=== PATIENT | female | born 1965 | race African-American/Black ===

== ENCOUNTER 2018-01-04 15:05 | Observation (INO) ==
[2018-01-04] MEDS ORDERED: SODIUM CHLORIDE 0.9% 1,000 ML IV STA (15:29)
[2018-01-04 16:11] LABS: Eosinophils % 0.4 % (0.00-10.9); Immature Granulocytes % 0.4 %; Immature Granulocytes Absolute 0.01 #; Lymphocytes # 1.2 10*3/uL (1.4-4.0); Lymphocytes % 43.1 % (21.3-54.2); Mean Corpuscular HGB Conc 30.3 GM/DL (32-36); Mean Corpuscular Hemoglobin 22 PG (27-34); Mean Corpuscular Volume 72.4 FL (87-102); Monocytes # 0.5 10*3/uL (0.11-0.8); Monocytes % 18.2 % (1.7-12.7); Neutrophils % 37.9 % (38.7-73.9); Platelet Count 207 T/CUMM (130-400); Red Blood Count 3.15 MC/CUMM (3.8-5.5); Red Cell Distribution Width 21.7 % (9.3-17.3); White Blood Count 2.7 T/CUMM (4-12)
[2018-01-04 16:15] LABS: Apearance,Urine CLEAR (Clear); Bacteria,Urine Occasional /HPF (Few); Bilirubin,Urine Negative (Negative); Blood, Urine Negative (Negative); Glucose,Urine (UA) Negative (Negative); Ketones,Urine Negative (Negative); Mucus,Urine Few /LPF (Occasional); Nitrite,Urine Negative (Negative); Protein,Urine Negative; RBC,Urine 1 /HPF (0-4); Squamous Epithelial Cell,Urine Occasional /HPF (0-10); Urine Color Yellow (Yellow); Urine Specific Gravity 1.014 (1.001-1.035); WBC,Urine 3 /HPF (0-6)
[2018-01-04 16:21] LABS: Hematocrit 22.8 VOL% (35.7-47.0); Hemoglobin 6.9 GM/DL (12.0-16.0)
[2018-01-04] MEDS ORDERED: SODIUM CHLORIDE 0.9% 1,000 ML IV PRN (16:30)
[2018-01-04 16:31] LABS: Albumin 2.5 G/DL (3.4-5.0); Bilirubin,Total 0.4 MG/DL (0.2-1.0); Calcium 8.8 MG/DL (8.5-10.1); Osmolality,Calculated 274.7 MOS/KG (273-304); Potassium 2.9 MMOL/L (3.5-5.1); T4 (Thyroxine) 9.8 UG/DL (4.7-13.3); Thyroid Stimulating Hormone 1.15 uIU/ml (0.358-3.74); Total Protein 8.2 G/DL (6.4-8.3)
[2018-01-04] MEDS ORDERED: MYLANTA/LIDO VISC 2:1 300 ML BOTTLE SWISH/SWAL PRN (18:36)
[2018-01-04] MEDS ORDERED: PROMETHAZINE INJ 25 MG in SODIUM CHLORIDE 0.9% 50 ML IV PRN (18:36)
[2018-01-04] MEDS ORDERED: diphenhydrAMINE CAP 25 MG CAPSULE PO PRN (18:36)
[2018-01-04] MEDS ORDERED: chlorproMAZINE 25 MG TABLET PO PRN (18:36)
[2018-01-04] MEDS ORDERED: ALPRAZolam 0.25 MG TABLET PO PRN (18:36)
[2018-01-04] MEDS ORDERED: MYLANTA/LIDO VISC 2:1 300 ML BOTTLE SWISH/SPIT PRN (18:36)
[2018-01-04] MEDS ORDERED: ACETAMINOPHEN 325 MG TABLET PO PRN (18:36)
[2018-01-04] MEDS ORDERED: TEMAZEPAM 7.5 MG CAPSULE PO PRN (18:36)
[2018-01-04] MEDS ORDERED: MAGNESIUM HYDROXIDE SUSP 30 ML UDCUP PO PRN (18:36)
[2018-01-04] MEDS ORDERED: LACTULOSE 20 GM/30 ML UDCUP PO PRN (18:36)
[2018-01-04] MEDS ORDERED: guaiFENesin 200 MG/10 ML UDCUP PO PRN (18:36)
[2018-01-04] MEDS ORDERED: traMADol 50 MG TABLET PO PRN (18:36)
[2018-01-04] MEDS ORDERED: BENZTROPINE 2 MG/2 ML AMP IV PRN (18:36)
[2018-01-04] MEDS ORDERED: ONDANSETRON 4 MG/2 ML VIAL IV PRN (18:36)
[2018-01-04] MEDS ORDERED: ALUMINUM/MAGNES/SIMETH MAX STR 30 ML UDCUP PO PRN (18:36)
[2018-01-04] MEDS ORDERED: LOPERAMIDE 2 MG CAPSULE PO PRN ×2 (18:36)
[2018-01-04 19:07] LABS: Anisocytosis 2+; Band Neutrophils 4 % (0-10); Hypochromasia 2+; Lymphocytes 44 % (20-55); Macrocytosis 2+; Metamyelocytes 1 %; Ovalocytes 1+; Platelet Estimate Normal; Segmented Neutrophils 33 % (50-85); Total Cells Counted 100
[2018-01-04] MEDS: SODIUM CHLORIDE 0.9% 1,000 ML IV SCH (20:57)
[2018-01-05] MEDS ORDERED: ALPRAZolam 0.25 MG TABLET PO PRN (08:40)
[2018-01-05] MEDS ORDERED: ONDANSETRON 4 MG TABLET PO PRN (08:40)
[2018-01-05] MEDS ORDERED: PROCHLORPERAZINE 10 MG TABLET PO PRN (08:40)
[2018-01-05] MEDS ORDERED: traMADol 50 MG TABLET PO PRN (08:40)
[2018-01-05] MEDS ORDERED: POTASSIUM CHLORIDE IV ONE (09:00)
[2018-01-05] MEDS ORDERED: POTASSIUM CHLORIDE RIDER IV SCH (09:00)
[2018-01-05] MEDS ORDERED: MAGNESIUM SULF IV SCH (09:00)
[2018-01-05] MEDS ORDERED: SODIUM CHLORIDE 0.9% IV ONE (09:00)
[2018-01-05] MEDS ORDERED: MAGNESIUM SULF IV ONE (09:00)
[2018-01-05] MEDS ORDERED: HEPARIN LOCK FLUSH 500 UNIT/5 ML SYRINGE IV ONE ×2 (09:03→18:09)
[2018-01-05] MEDS: SODIUM CHLORIDE 0.9% 1,000 ML IV SCH (09:32)
[2018-01-05 09:54] LABS: Basophils % 0.3 % (0.0-0.8); Hematocrit 27.3 VOL% (35.7-47.0); Immature Granulocytes % 0.3 %; Immature Granulocytes Absolute 0.01 #; Lymphocytes # 1.7 10*3/uL (1.4-4.0); Mean Corpuscular HGB Conc 31.5 GM/DL (32-36); Mean Corpuscular Hemoglobin 23 PG (27-34); Mean Corpuscular Volume 73.8 FL (87-102); Monocytes # 0.6 10*3/uL (0.11-0.8); Monocytes % 14.8 % (1.7-12.7); Neutrophils # 1.7 10*3/uL (1.4-7.4); Neutrophils % 41.6 % (38.7-73.9); Platelet Count 192 T/CUMM (130-400); Red Cell Distribution Width 20.4 % (9.3-17.3)
[2018-01-05 09:56] LABS: Hemoglobin 8.6 GM/DL (12.0-16.0)
[2018-01-05 10:20] LABS: Calcium 8.1 MG/DL (8.5-10.1); Osmolality,Calculated 269.8 MOS/KG (273-304); Potassium 3.3 MMOL/L (3.5-5.1)
[2018-01-05 16:26] VITALS: BP 126/95
== END 2018-01-05 18:41 | disposition home or self-care (01) ==
LOC: N.EDINP 15:05 → N.ED 15:05 → N.EDINP 18:35 → N.4E 19:07
PROVIDERS: ADMIT Specialist; ATTEND Specialist

== ENCOUNTER 2018-03-30 21:52 | Observation (INO) ==
[2018-03-30] MEDS ORDERED: ACETAMINOPHEN 500 MG TABLET PO STA (23:01)
[2018-03-30] MEDS ORDERED: SODIUM CHLORIDE 0.9% 1,000 ML IV STA (23:01)
[2018-03-30 23:33] LABS: Basophils % 0.3 % (0.0-0.8); Hematocrit 30.6 VOL% (35.7-47.0); Hemoglobin 9.8 GM/DL (12.0-16.0); Immature Granulocytes % 0.3 %; Immature Granulocytes Absolute 0.01 #; Lymphocytes # 1.1 10*3/uL (1.4-4.0); Lymphocytes % 29.7 % (21.3-54.2); Mean Corpuscular Hemoglobin 25 PG (27-34); Mean Corpuscular Volume 78.5 FL (87-102); Monocytes # 0.3 10*3/uL (0.11-0.8); Monocytes % 6.8 % (1.7-12.7); NRBC # 0.02 10*3/uL; Neutrophils # 2.4 10*3/uL (1.4-7.4); Neutrophils % 62.9 % (38.7-73.9); Platelet Count 266 T/CUMM (130-400); Red Cell Distribution Width 22.7 % (9.3-17.3); White Blood Count 3.8 T/CUMM (4-12)
[2018-03-30 23:50] LABS: Apearance,Urine CLEAR (Clear); Bacteria,Urine Occasional /HPF (Few); Bilirubin,Urine Negative (Negative); Blood, Urine Negative (Negative); Glucose,Urine (UA) Negative (Negative); Ketones,Urine Negative (Negative); Mucus,Urine Occasional /LPF (Occasional); Nitrite,Urine Negative (Negative); Protein,Urine Negative; RBC,Urine 2 /HPF (0-4); Squamous Epithelial Cell,Urine Occasional /HPF (0-10); Urine Color Yellow (Yellow); Urine Specific Gravity 1.013 (1.001-1.035); Urine Urobilinogen < 2.0 EU/DL (0.2-1.0); WBC,Urine 3 /HPF (0-6)
[2018-03-30 23:54] LABS: Lactic Acid 0.7 MMOL/L (0.4-2.0)
[2018-03-30 23:55] LABS: Albumin 2.7 G/DL (3.4-5.0); Bilirubin,Total 1.1 MG/DL (0.2-1.0); Calcium 8.7 MG/DL (8.5-10.1); Osmolality,Calculated 261.7 MOS/KG (273-304); Total Protein 8.3 G/DL (6.4-8.3)
[2018-03-31] MEDS ORDERED: CEFEPIME 1,000 MG in SODIUM CHLORIDE 0.9% 100 ML IV STA (00:05)
[2018-03-31 01:26] LABS: Anisocytosis 2+; Hypochromasia 1+; Poikilocytosis 2+
[2018-03-31 01:27] LABS: Polychromasia Slight
[2018-03-31] MEDS ORDERED: PROCHLORPERAZINE 10 MG TABLET PO PRN (01:32)
[2018-03-31] MEDS ORDERED: ALPRAZolam 0.25 MG TABLET PO PRN (01:32)
[2018-03-31] MEDS: SODIUM CHLORIDE 0.9% 1,000 ML IV SCH ×2 (04:43→08:52)
[2018-03-31 05:25] LABS: Basophils % 0.3 % (0.0-0.8); Hematocrit 29.2 VOL% (35.7-47.0); Hemoglobin 9.6 GM/DL (12.0-16.0); Immature Granulocytes % 0.3 %; Immature Granulocytes Absolute 0.01 #; Lymphocytes # 1.3 10*3/uL (1.4-4.0); Lymphocytes % 40.1 % (21.3-54.2); Mean Corpuscular HGB Conc 32.9 GM/DL (32-36); Mean Corpuscular Hemoglobin 25 PG (27-34); Mean Corpuscular Volume 76.6 FL (87-102); Monocytes # 0.2 10*3/uL (0.11-0.8); Monocytes % 6.5 % (1.7-12.7); Neutrophils # 1.7 10*3/uL (1.4-7.4); Neutrophils % 52.8 % (38.7-73.9); Platelet Count 270 T/CUMM (130-400); Red Blood Count 3.81 MC/CUMM (3.8-5.5); Red Cell Distribution Width 22.9 % (9.3-17.3); White Blood Count 3.2 T/CUMM (4-12)
[2018-03-31 05:46] LABS: Anisocytosis 2+; Poikilocytosis 2+
[2018-03-31 05:47] LABS: Acanthocytes 1+; Target Cells Slight
[2018-03-31 05:52] LABS: Calcium 8.3 MG/DL (8.5-10.1)
[2018-03-31] MEDS ORDERED: CEFEPIME 1,000 MG in SYRINGE 1 EACH IV SCH (08:30)
[2018-03-31] MEDS ORDERED: ENOXAPARIN 40 MG/0.4 ML SYRINGE SUBCUT SCH (09:00)
[2018-03-31] MEDS ORDERED: MAGNESIUM OXIDE 400 MG TABLET PO SCH (09:00)
[2018-03-31] MEDS ORDERED: GABAPENTIN 300 MG CAPSULE PO SCH (09:00)
[2018-03-31 12:12] VITALS: BP 90/65
[2018-03-31] MEDS ORDERED: HEPARIN LOCK FLUSH 500 UNIT/5 ML SYRINGE IV ONE (12:17)
[2018-03-31] MEDS ORDERED: ONDANSETRON 4 MG/2 ML VIAL IV ONE (13:26)
== END 2018-03-31 14:50 | disposition home or self-care (01) ==
LOC: N.ED 21:52 → N.EDINP 21:52 → SUATTDRO 03-31 01:27 → N.4E 03-31 04:03
PROVIDERS: ADMIT Internal Medicine; ATTEND Internal Medicine

== ENCOUNTER 2018-05-10 09:53 | Inpatient (IN) ==
[2018-05-10] MEDS ORDERED: SODIUM CHLORIDE 0.9% 1,000 ML IV STA (10:39)
[2018-05-10 10:52] LABS: Basophils % 0.4 % (0.0-0.8); Hematocrit 23.2 VOL% (35.7-47.0); Hemoglobin 7.2 GM/DL (12.0-16.0); Immature Granulocytes % 0.4 %; Immature Granulocytes Absolute 0.01 #; Mean Corpuscular Hemoglobin 24 PG (27-34); Mean Corpuscular Volume 77.3 FL (87-102); Monocytes # 0.3 10*3/uL (0.11-0.8); Monocytes % 10.2 % (1.7-12.7); NRBC # 0.05 10*3/uL; Neutrophils # 1.4 10*3/uL (1.4-7.4); Platelet Count 259 T/CUMM (130-400); Red Cell Distribution Width 22.8 % (9.3-17.3); White Blood Count 2.7 T/CUMM (4-12)
[2018-05-10 11:09] LABS: Albumin 2.4 G/DL (3.4-5.0); Bilirubin,Total 0.9 MG/DL (0.2-1.0); Calcium 9.2 MG/DL (8.5-10.1); Osmolality,Calculated 263.5 MOS/KG (273-304); Total Protein 7.7 G/DL (6.4-8.3)
[2018-05-10 11:16] LABS: Hypochromasia 1+; Ovalocytes Slight; Platelet Estimate Adequate
[2018-05-10 11:17] LABS: Microcytosis 1+
[2018-05-10] MEDS ORDERED: LEVOFLOXACIN INJ 500 MG in PREMIX 1 EACH IV STA (11:23)
[2018-05-10] MEDS ORDERED: TEMAZEPAM 7.5 MG CAPSULE PO PRN (11:31)
[2018-05-10] MEDS ORDERED: diphenhydrAMINE CAP 25 MG CAPSULE PO PRN (11:31)
[2018-05-10] MEDS ORDERED: MAGNESIUM HYDROXIDE SUSP 30 ML UDCUP PO PRN (11:31)
[2018-05-10] MEDS ORDERED: cefTRIAXone 1,000 MG in SODIUM CHLORIDE 0.9% 100 ML IV STA (11:31)
[2018-05-10] MEDS ORDERED: ALUMINUM/MAGNES/SIMETH MAX STR 30 ML UDCUP PO PRN (11:31)
[2018-05-10] MEDS ORDERED: ALPRAZolam 0.25 MG TABLET PO PRN (11:31)
[2018-05-10] MEDS ORDERED: MYLANTA/LIDO VISC 2:1 300 ML BOTTLE SWISH/SPIT PRN (11:31)
[2018-05-10] MEDS ORDERED: MYLANTA/LIDO VISC 2:1 300 ML BOTTLE SWISH/SWAL PRN (11:31)
[2018-05-10] MEDS ORDERED: guaiFENesin 200 MG/10 ML UDCUP PO PRN (11:31)
[2018-05-10] MEDS ORDERED: ACETAMINOPHEN 325 MG TABLET PO PRN (11:31)
[2018-05-10] MEDS ORDERED: LACTULOSE 20 GM/30 ML UDCUP PO PRN (11:31)
[2018-05-10] MEDS ORDERED: BENZTROPINE 2 MG/2 ML AMP IV PRN (11:31)
[2018-05-10] MEDS ORDERED: LOPERAMIDE 2 MG CAPSULE PO PRN ×2 (11:31)
[2018-05-10] MEDS ORDERED: ONDANSETRON 4 MG/2 ML VIAL IV PRN (11:31)
[2018-05-10 11:33] LABS: Apearance,Urine CLEAR (Clear); Bacteria,Urine Occasional /HPF (Few); Bilirubin,Urine Negative (Negative); Blood, Urine Negative (Negative); Glucose,Urine (UA) Negative (Negative); Ketones,Urine Negative (Negative); Nitrite,Urine Negative (Negative); Protein,Urine Negative; RBC,Urine <1 /HPF (0-4); Squamous Epithelial Cell,Urine Occasional /HPF (0-10); Urine Color Yellow (Yellow); Urine Specific Gravity > 1.060 (1.001-1.035); Urine Urobilinogen < 2.0 EU/DL (0.2-1.0)
[2018-05-10] MEDS ORDERED: SODIUM CHLORIDE 0.9% 1,000 ML IV PRN ×2 (11:34→14:52)
[2018-05-10] MEDS ORDERED: cefTRIAXone 1,000 MG in SYRINGE 1 EACH IV STA (11:36)
[2018-05-10] MEDS: SODIUM CHLORIDE 0.9% 1,000 ML IV SCH (12:09)
[2018-05-10] MEDS: traMADol 50 MG TABLET PO PRN (21:14)
[2018-05-11] MEDS: traMADol 50 MG TABLET PO PRN (03:13)
[2018-05-11] MEDS: SODIUM CHLORIDE 0.9% 1,000 ML IV SCH ×4 (04:00→09:38)
[2018-05-11 05:46] LABS: Basophils % 0.7 % (0.0-0.8); Eosinophils % 0.3 % (0.00-10.9); Hematocrit 27.5 VOL% (35.7-47.0); Hemoglobin 8.7 GM/DL (12.0-16.0); Immature Granulocytes % 1.7 %; Immature Granulocytes Absolute 0.05 #; Lymphocytes # 1.2 10*3/uL (1.4-4.0); Lymphocytes % 38.6 % (21.3-54.2); Mean Corpuscular HGB Conc 31.6 GM/DL (32-36); Mean Corpuscular Hemoglobin 25 PG (27-34); Monocytes # 0.4 10*3/uL (0.11-0.8); Monocytes % 13.1 % (1.7-12.7); NRBC # 0.12 10*3/uL; Neutrophils # 1.4 10*3/uL (1.4-7.4); Neutrophils % 45.6 % (38.7-73.9); Platelet Count 235 T/CUMM (130-400); Red Blood Count 3.48 MC/CUMM (3.8-5.5); Red Cell Distribution Width 21.4 % (9.3-17.3)
[2018-05-11 06:03] LABS: Elliptocytes Few; Hypochromasia 1+; Platelet Estimate Adequate
[2018-05-11 06:04] LABS: Macrocytosis Slight; Polychromasia Slight
[2018-05-11 06:16] LABS: Albumin 1.9 G/DL (3.4-5.0); Bilirubin,Total 0.5 MG/DL (0.2-1.0); Calcium 8.3 MG/DL (8.5-10.1); Osmolality,Calculated 270.8 MOS/KG (273-304); Potassium 3.8 MMOL/L (3.5-5.1); Total Protein 6.4 G/DL (6.4-8.3)
[2018-05-11] MEDS ORDERED: MAGNESIUM SULF RIDER 2 GM in PREMIX 1 EACH IV ONE (08:35)
[2018-05-11] MEDS: FILGRASTIM-SNDZ 300 MCG/0.5 ML SYRINGE SUBCUT SCH (09:30)
[2018-05-12] MEDS: SODIUM CHLORIDE 0.9% 1,000 ML IV SCH (03:48)
[2018-05-12 08:24] VITALS: BP 109/81
[2018-05-12] MEDS: FILGRASTIM-SNDZ 300 MCG/0.5 ML SYRINGE SUBCUT SCH (08:49)
== END 2018-05-12 11:55 | disposition home or self-care (01) | DRG 812 ==
LOC: N.ED 09:53 → N.EDINP 11:29 → N.4E 14:10
PROVIDERS: ADMIT Specialist; ATTEND Specialist

== ENCOUNTER 2018-11-09 12:29 | Inpatient (IN) ==
[2018-11-09 13:22] LABS: Basophils % 0.1 % (0.0-0.8); Hematocrit 29.1 VOL% (35.7-47.0); Hemoglobin 8.9 GM/DL (12.0-16.0); Immature Granulocytes % 1.3 %; Immature Granulocytes Absolute 0.11 #; Lymphocytes % 23.2 % (21.3-54.2); Mean Corpuscular HGB Conc 30.6 GM/DL (32-36); Mean Corpuscular Hemoglobin 24 PG (27-34); Mean Corpuscular Volume 78.2 FL (87-102); Monocytes # 1.1 10*3/uL (0.11-0.8); Monocytes % 12.5 % (1.7-12.7); NRBC # 0.03 10*3/uL; Neutrophils # 5.3 10*3/uL (1.4-7.4); Neutrophils % 62.9 % (38.7-73.9); Platelet Count 123 T/CUMM (130-400); Red Blood Count 3.72 MC/CUMM (3.8-5.5); Red Cell Distribution Width 20.2 % (9.3-17.3); White Blood Count 8.5 T/CUMM (4-12)
[2018-11-09 13:39] LABS: Albumin 1.9 G/DL (3.4-5.0); Bilirubin,Total 0.6 MG/DL (0.2-1.0); Calcium 8.6 MG/DL (8.5-10.1); Osmolality,Calculated 265.4 MOS/KG (273-304); Potassium 3.2 MMOL/L (3.5-5.1); Total Protein 7.2 G/DL (6.4-8.3)
[2018-11-09] MEDS ORDERED: POTASSIUM CHLORIDE 20 MEQ TABLET PO STA (13:41)
[2018-11-09 13:59] LABS: Hypochromasia 1+; Platelet Estimate Decreased
[2018-11-09 14:00] LABS: Microcytosis Slight
[2018-11-09] MEDS ORDERED: METOPROLOL TARTRATE 5 MG/5 ML VIAL IV STA (14:10)
[2018-11-09] MEDS ORDERED: MYLANTA/LIDO VISC 2:1 300 ML BOTTLE SWISH/SPIT PRN (14:21)
[2018-11-09] MEDS ORDERED: chlorproMAZINE INJ 50 MG in SODIUM CHLORIDE 0.9% 100 ML IV PRN (14:21)
[2018-11-09] MEDS ORDERED: MYLANTA/LIDO VISC 2:1 300 ML BOTTLE SWISH/SWAL PRN (14:21)
[2018-11-09] MEDS ORDERED: PROMETHAZINE INJ 25 MG in SODIUM CHLORIDE 0.9% 50 ML IV PRN (14:21)
[2018-11-09] MEDS ORDERED: chlorproMAZINE 25 MG TABLET PO PRN (14:21)
[2018-11-09] MEDS ORDERED: diphenhydrAMINE CAP 25 MG CAPSULE PO PRN (14:21)
[2018-11-09] MEDS ORDERED: BENZTROPINE 2 MG/2 ML AMP IV PRN (14:21)
[2018-11-09] MEDS ORDERED: LACTULOSE 20 GM/30 ML UDCUP PO PRN (14:21)
[2018-11-09] MEDS ORDERED: chlorproMAZINE INJ 25 MG in SODIUM CHLORIDE 0.9% 100 ML IV PRN (14:21)
[2018-11-09] MEDS ORDERED: LOPERAMIDE 2 MG CAPSULE PO PRN ×2 (14:21)
[2018-11-09] MEDS ORDERED: SODIUM CHLORIDE 0.9% 1,000 ML IV STA (14:22)
[2018-11-09] MEDS: SODIUM CHLORIDE 0.9% 1,000 ML IV SCH ×2 (17:00→23:25)
[2018-11-09] MEDS: ONDANSETRON 4 MG/2 ML VIAL IV PRN (19:35)
[2018-11-09] MEDS: TEMAZEPAM 7.5 MG CAPSULE PO PRN (20:56)
[2018-11-09] MEDS: ACETAMINOPHEN 325 MG TABLET PO PRN (22:58)
[2018-11-09] MEDS: traMADol 50 MG TABLET PO PRN (23:03)
[2018-11-10 01:47] LABS: Apearance,Urine CLEAR (Clear); Bilirubin,Urine Negative (Negative); Blood, Urine Negative (Negative); Glucose,Urine (UA) Negative (Negative); Ketones,Urine 5 mg/dL (Negative); Mucus,Urine Occasional /LPF (Occasional); Nitrite,Urine Negative (Negative); Protein,Urine Negative; RBC,Urine <1 /HPF (0-4); Squamous Epithelial Cell,Urine Occasional /HPF (0-10); Urine Color Yellow (Yellow); Urine Specific Gravity 1.048 (1.001-1.035); WBC,Urine 1 /HPF (0-6)
[2018-11-10] MEDS: SODIUM CHLORIDE 0.9% 1,000 ML IV SCH ×3 (03:50→22:43)
[2018-11-10 04:58] LABS: Basophils % 0.1 % (0.0-0.8); Hematocrit 25.4 VOL% (35.7-47.0); Hemoglobin 7.6 GM/DL (12.0-16.0); Immature Granulocytes % 1.5 %; Immature Granulocytes Absolute 0.12 #; Lymphocytes # 1.4 10*3/uL (1.4-4.0); Lymphocytes % 17.6 % (21.3-54.2); Mean Corpuscular HGB Conc 29.9 GM/DL (32-36); Mean Corpuscular Hemoglobin 24 PG (27-34); Mean Corpuscular Volume 79.4 FL (87-102); Monocytes # 1.6 10*3/uL (0.11-0.8); Monocytes % 19.3 % (1.7-12.7); Neutrophils % 61.5 % (38.7-73.9); Red Cell Distribution Width 20.3 % (9.3-17.3); White Blood Count 8.1 T/CUMM (4-12)
[2018-11-10 05:00] LABS: Platelet Count 77 T/CUMM (130-400)
[2018-11-10 05:17] LABS: Nucleated Red Blood Cells 1 (0-5); Total Cells Counted 100
[2018-11-10 05:18] LABS: Albumin 1.6 G/DL (3.4-5.0); Bilirubin,Total 0.4 MG/DL (0.2-1.0); Calcium 7.7 MG/DL (8.5-10.1); Osmolality,Calculated 270.1 MOS/KG (273-304); Potassium 3.4 MMOL/L (3.5-5.1); Total Protein 6.1 G/DL (6.4-8.3)
[2018-11-10 05:19] LABS: Band Neutrophils 2 % (0-10); Eosinophils 1 % (0-10); Lymphocytes 14 % (20-55); Platelet Estimate Decreased; Segmented Neutrophils 68 % (50-85)
[2018-11-10 05:20] LABS: Atypical Lymphocytes Few; Hypochromasia 1+; Microcytosis Slight; Ovalocytes Slight
[2018-11-10] MEDS ORDERED: PROCHLORPERAZINE 10 MG TABLET PO PRN (10:14)
[2018-11-10] MEDS ORDERED: ALPRAZolam 0.25 MG TABLET PO PRN (10:14)
[2018-11-10] MEDS ORDERED: diphenhydrAMINE CAP 25 MG CAPSULE PO PRN (10:14)
[2018-11-10] MEDS ORDERED: SODIUM CHLORIDE 0.9% 1,000 ML IV PRN (10:14)
[2018-11-10] MEDS ORDERED: traMADol 50 MG TABLET PO PRN (10:14)
[2018-11-10] MEDS: fentaNYL 25 MCG/HR PATCH TRANSDERM SCH (10:31)
[2018-11-10] MEDS: ENOXAPARIN 30 MG/0.3 ML SYRINGE SUBCUT SCH (11:41)
[2018-11-10] MEDS: MEROPENEM 1,000 MG in SODIUM CHLORIDE 0.9% 100 ML IV SCH ×2 (12:39→22:09)
[2018-11-10] MEDS ORDERED: VANCOMYCIN INJ 1,750 MG in SODIUM CHLORIDE 0.9% 500 ML IV ONE (13:00)
[2018-11-10] MEDS: traMADol 50 MG TABLET PO PRN (15:30)
[2018-11-10] MEDS: MAGNESIUM HYDROXIDE SUSP 30 ML UDCUP PO PRN (16:49)
[2018-11-11] MEDS: VANCOMYCIN INJ 1,250 MG in SODIUM CHLORIDE 0.9% 250 ML IV SCH ×2 (00:34→12:59)
[2018-11-11] MEDS: MEROPENEM 1,000 MG in SODIUM CHLORIDE 0.9% 100 ML IV SCH ×3 (04:09→20:19)
[2018-11-11 04:50] LABS: Basophils % 0.1 % (0.0-0.8); Eosinophils % 0.1 % (0.00-10.9); Hemoglobin 9.1 GM/DL (12.0-16.0); Immature Granulocytes % 1.1 %; Immature Granulocytes Absolute 0.11 #; Lymphocytes # 1.6 10*3/uL (1.4-4.0); Mean Corpuscular HGB Conc 30.3 GM/DL (32-36); Mean Corpuscular Hemoglobin 25 PG (27-34); Mean Corpuscular Volume 80.6 FL (87-102); Monocytes # 1.9 10*3/uL (0.11-0.8); Monocytes % 19.1 % (1.7-12.7); Neutrophils # 6.2 10*3/uL (1.4-7.4); Neutrophils % 63.6 % (38.7-73.9); Platelet Count 117 T/CUMM (130-400); Red Blood Count 3.72 MC/CUMM (3.8-5.5); Red Cell Distribution Width 19.2 % (9.3-17.3); White Blood Count 9.7 T/CUMM (4-12)
[2018-11-11 05:28] LABS: Albumin 1.5 G/DL (3.4-5.0); Bilirubin,Total 1.7 MG/DL (0.2-1.0); Calcium 6.7 MG/DL (8.5-10.1); Osmolality,Calculated 261.4 MOS/KG (273-304); Potassium 3.9 MMOL/L (3.5-5.1); Total Protein 5.8 G/DL (6.4-8.3)
[2018-11-11 05:31] LABS: Lymphocytes 13 % (20-55); Metamyelocytes 1 %; Myelocytes 1 %; Segmented Neutrophils 69 % (50-85); Total Cells Counted 100
[2018-11-11 05:32] LABS: Atypical Lymphocytes Few; Hypochromasia 1+; Microcytosis 1+; Ovalocytes Slight; Platelet Estimate Decreased; Tear Drop Cells Slight
[2018-11-11 05:33] LABS: Anisocytosis 1+
[2018-11-11] MEDS: guaiFENesin/CODEINE 5 ML LIQUID PO PRN (11:04)
[2018-11-11] MEDS: SODIUM CHLORIDE 0.9% 1,000 ML IV SCH (11:10)
[2018-11-11] MEDS: METOPROLOL TARTRATE 25 MG TABLET PO SCH ×2 (11:33→20:18)
[2018-11-11] MEDS: ENOXAPARIN 30 MG/0.3 ML SYRINGE SUBCUT SCH (11:33)
[2018-11-11] MEDS: BENZONATATE 100 MG CAPSULE PO PRN (20:18)
[2018-11-12] MEDS: MEROPENEM 1,000 MG in SODIUM CHLORIDE 0.9% 100 ML IV SCH ×3 (04:06→22:50)
[2018-11-12 05:23] LABS: Basophils % 0.2 % (0.0-0.8); Hematocrit 31.3 VOL% (35.7-47.0); Hemoglobin 9.5 GM/DL (12.0-16.0); Immature Granulocytes % 0.8 %; Immature Granulocytes Absolute 0.09 #; Lymphocytes # 1.7 10*3/uL (1.4-4.0); Lymphocytes % 14.4 % (21.3-54.2); Mean Corpuscular HGB Conc 30.4 GM/DL (32-36); Mean Corpuscular Hemoglobin 24 PG (27-34); Mean Corpuscular Volume 80.5 FL (87-102); Monocytes # 2.1 10*3/uL (0.11-0.8); Monocytes % 18.5 % (1.7-12.7); NRBC # 0.02 10*3/uL; Neutrophils # 7.6 10*3/uL (1.4-7.4); Neutrophils % 66.1 % (38.7-73.9); Platelet Count 133 T/CUMM (130-400); Red Blood Count 3.89 MC/CUMM (3.8-5.5); Red Cell Distribution Width 19.5 % (9.3-17.3); White Blood Count 11.5 T/CUMM (4-12)
[2018-11-12 05:55] LABS: Albumin 1.3 G/DL (3.4-5.0); Bilirubin,Total 0.8 MG/DL (0.2-1.0); Calcium 7.6 MG/DL (8.5-10.1); Osmolality,Calculated 266.1 MOS/KG (273-304); Potassium 3.7 MMOL/L (3.5-5.1); Total Protein 5.7 G/DL (6.4-8.3)
[2018-11-12 06:07] LABS: Total Cells Counted 100
[2018-11-12 06:08] LABS: Hypochromasia 2+; Lymphocytes 14 % (20-55); Platelet Estimate Normal; Segmented Neutrophils 67 % (50-85)
[2018-11-12] MEDS: guaiFENesin/CODEINE 5 ML LIQUID PO PRN (06:40)
[2018-11-12] MEDS: SODIUM CHLORIDE 0.9% 1,000 ML IV SCH ×3 (06:41→18:30)
[2018-11-12] MEDS ORDERED: CALCIUM GLUCONATE 1,000 MG in SODIUM CHLORIDE 0.9% 100 ML IV ONE (09:09)
[2018-11-12] MEDS ORDERED: POTASSIUM CHLORIDE 20 MEQ TABLET PO ONE (10:11)
[2018-11-12] MEDS ORDERED: MAGNESIUM OXIDE 400 MG TABLET PO ONE (10:12)
[2018-11-12] MEDS ORDERED: SODIUM CHLORIDE 0.9% 1,000 ML IV ONE (10:13)
[2018-11-12] MEDS: MAGNESIUM OXIDE 400 MG TABLET PO PRN (11:10)
[2018-11-12] MEDS: METOPROLOL TARTRATE 25 MG TABLET PO SCH (11:10)
[2018-11-12] MEDS: ENOXAPARIN 30 MG/0.3 ML SYRINGE SUBCUT SCH (11:11)
[2018-11-12] MEDS: BENZONATATE 100 MG CAPSULE PO PRN (11:23)
[2018-11-12] MEDS: VANCOMYCIN INJ 1,250 MG in SODIUM CHLORIDE 0.9% 250 ML IV SCH ×3 (12:06→22:50)
[2018-11-12] MEDS: ACETAMINOPHEN 325 MG TABLET PO PRN (17:26)
[2018-11-12] MEDS: ALUMINUM/MAGNES/SIMETH MAX STR 30 ML UDCUP PO PRN (18:04)
[2018-11-12] MEDS: ALPRAZolam 0.25 MG TABLET PO PRN (18:34)
[2018-11-12] MEDS: MICAFUNGIN 100 MG in SODIUM CHLORIDE 0.9% 100 ML IV SCH (22:45)
[2018-11-13] MEDS: MEROPENEM 1,000 MG in SODIUM CHLORIDE 0.9% 100 ML IV SCH ×3 (05:03→20:11)
[2018-11-13] MEDS: VANCOMYCIN INJ 1,250 MG in SODIUM CHLORIDE 0.9% 250 ML IV SCH ×3 (05:04→20:19)
[2018-11-13 05:09] LABS: Basophils % 0.1 % (0.0-0.8); Eosinophils % 0.2 % (0.00-10.9); Hematocrit 29.5 VOL% (35.7-47.0); Hemoglobin 8.9 GM/DL (12.0-16.0); Immature Granulocytes % 0.8 %; Immature Granulocytes Absolute 0.09 #; Lymphocytes # 1.1 10*3/uL (1.4-4.0); Lymphocytes % 9.5 % (21.3-54.2); Mean Corpuscular HGB Conc 30.2 GM/DL (32-36); Mean Corpuscular Hemoglobin 24 PG (27-34); Mean Corpuscular Volume 80.8 FL (87-102); Mean Platelet Volume 13.1 FL (9.6-12.0); Monocytes % 17.8 % (1.7-12.7); Neutrophils % 71.6 % (38.7-73.9); Platelet Count 209 T/CUMM (130-400); Red Blood Count 3.65 MC/CUMM (3.8-5.5); Red Cell Distribution Width 19.7 % (9.3-17.3); White Blood Count 11.2 T/CUMM (4-12)
[2018-11-13 05:35] LABS: Albumin 1.2 G/DL (3.4-5.0); Bilirubin,Total 0.6 MG/DL (0.2-1.0); Calcium 7.7 MG/DL (8.5-10.1); Hypochromasia 1+; Lymphocytes 4 % (20-55); Microcytosis Slight; Osmolality,Calculated 271.7 MOS/KG (273-304); Ovalocytes Slight; Platelet Estimate Adequate; Potassium 3.9 MMOL/L (3.5-5.1); Segmented Neutrophils 89 % (50-85); Total Cells Counted 100; Total Protein 5.1 G/DL (6.4-8.3)
[2018-11-13] MEDS: SODIUM CHLORIDE 0.9% 1,000 ML IV SCH ×2 (06:51)
[2018-11-13] MEDS: ALPRAZolam 0.25 MG TABLET PO PRN (07:49)
[2018-11-13] MEDS ORDERED: MAGNESIUM SULF RIDER 2 GM in PREMIX 1 EACH IV ONE (08:52)
[2018-11-13 09:20] LABS: Allen Test Positive
[2018-11-13] MEDS: fentaNYL 25 MCG/HR PATCH TRANSDERM SCH (09:20)
[2018-11-13 09:22] LABS: ABG Base Excess 2.8 MMOL/L (-2.5-2.5); ABG HCO3 26.9 MMOL/L (20-26); ABG Oxygen Saturation 93.1 % (95-100); ABG PH 7.432 (7.35-7.45); ABG PO2 66.8 MM HG (80-95); ABG TCO2 24.7 MMOL/L (23-27)
[2018-11-13] MEDS: ENOXAPARIN 80 MG/0.8 ML SYRINGE SUBCUT SCH ×2 (10:05→20:11)
[2018-11-13] MEDS: methylPREDNISolone SOD SUC 40 MG/1 ML VIAL IV SCH ×2 (10:06→16:51)
[2018-11-13] MEDS ORDERED: FUROSEMIDE 40 MG/4 ML VIAL IV ONE (10:18)
[2018-11-13] MEDS ORDERED: ALBUMIN 25% 25 GM in PREMIX 1 EACH IV ONE (10:47)
[2018-11-13 11:07] LABS: Apearance,Urine Slightly Hazy (Clear); Bacteria,Urine Occasional /HPF (Few); Bilirubin,Urine Negative (Negative); Blood, Urine Negative (Negative); Glucose,Urine (UA) Negative (Negative); Ketones,Urine Negative (Negative); Mucus,Urine Occasional /LPF (Occasional); Nitrite,Urine Negative (Negative); Protein,Urine Negative; RBC,Urine 1 /HPF (0-4); Urine Color Yellow (Yellow); Urine Specific Gravity 1.013 (1.001-1.035); Urine Urobilinogen < 2.0 EU/DL (0.2-1.0); WBC,Urine <1 /HPF (0-6)
[2018-11-13] MEDS: MICAFUNGIN 100 MG in SODIUM CHLORIDE 0.9% 100 ML IV SCH (18:32)
[2018-11-14] MEDS: methylPREDNISolone SOD SUC 40 MG/1 ML VIAL IV SCH ×3 (02:18→16:34)
[2018-11-14] MEDS: MEROPENEM 1,000 MG in SODIUM CHLORIDE 0.9% 100 ML IV SCH ×3 (03:10→20:18)
[2018-11-14] MEDS: guaiFENesin 200 MG/10 ML UDCUP PO PRN ×2 (03:25→16:35)
[2018-11-14] MEDS: ALPRAZolam 0.25 MG TABLET PO PRN (03:25)
[2018-11-14 05:37] LABS: Basophils % 0.1 % (0.0-0.8); Hematocrit 30.1 VOL% (35.7-47.0); Hemoglobin 9.1 GM/DL (12.0-16.0); Immature Granulocytes % 1.7 %; Immature Granulocytes Absolute 0.16 #; Lymphocytes # 0.6 10*3/uL (1.4-4.0); Lymphocytes % 6.5 % (21.3-54.2); Mean Corpuscular HGB Conc 30.2 GM/DL (32-36); Mean Corpuscular Hemoglobin 24 PG (27-34); Mean Corpuscular Volume 80.1 FL (87-102); Mean Platelet Volume 12.1 FL (9.6-12.0); Monocytes # 0.7 10*3/uL (0.11-0.8); Monocytes % 7.3 % (1.7-12.7); Neutrophils # 7.9 10*3/uL (1.4-7.4); Neutrophils % 84.4 % (38.7-73.9); Platelet Count 257 T/CUMM (130-400); Red Blood Count 3.76 MC/CUMM (3.8-5.5); Red Cell Distribution Width 19.8 % (9.3-17.3); White Blood Count 9.4 T/CUMM (4-12)
[2018-11-14 06:12] LABS: Albumin 1.8 G/DL (3.4-5.0); Bilirubin,Total 0.4 MG/DL (0.2-1.0); Calcium 8.2 MG/DL (8.5-10.1); Osmolality,Calculated 272.1 MOS/KG (273-304); Total Protein 5.8 G/DL (6.4-8.3)
[2018-11-14] MEDS ORDERED: FUROSEMIDE 40 MG/4 ML VIAL IV ONE (08:04)
[2018-11-14] MEDS: ENOXAPARIN 80 MG/0.8 ML SYRINGE SUBCUT SCH ×2 (08:54→20:29)
[2018-11-14] MEDS: VANCOMYCIN INJ 1,500 MG in SODIUM CHLORIDE 0.9% 500 ML IV SCH ×2 (08:57→20:18)
[2018-11-14] MEDS: MICAFUNGIN 100 MG in SODIUM CHLORIDE 0.9% 100 ML IV SCH (18:33)
[2018-11-14] MEDS: BENZONATATE 100 MG CAPSULE PO PRN (20:29)
[2018-11-14] MEDS: TEMAZEPAM 7.5 MG CAPSULE PO PRN (22:02)
[2018-11-15] MEDS: methylPREDNISolone SOD SUC 40 MG/1 ML VIAL IV SCH ×3 (00:30→17:08)
[2018-11-15] MEDS: ALPRAZolam 0.25 MG TABLET PO PRN (04:12)
[2018-11-15] MEDS: MEROPENEM 1,000 MG in SODIUM CHLORIDE 0.9% 100 ML IV SCH ×3 (04:15→23:36)
[2018-11-15] MEDS: VANCOMYCIN INJ 1,500 MG in SODIUM CHLORIDE 0.9% 500 ML IV SCH (08:35)
[2018-11-15 10:04] LABS: Calcium 7.9 MG/DL (8.5-10.1); Osmolality,Calculated 285.3 MOS/KG (273-304)
[2018-11-15] MEDS: ENOXAPARIN 40 MG/0.4 ML SYRINGE SUBCUT SCH (10:09)
[2018-11-15] MEDS: ENOXAPARIN 80 MG/0.8 ML SYRINGE SUBCUT SCH (10:24)
[2018-11-15] MEDS: LEVALBUTEROL 1.25 MG/3 ML NEB RESP TX SCH ×2 (14:00→23:19)
[2018-11-15] MEDS: MICAFUNGIN 100 MG in SODIUM CHLORIDE 0.9% 100 ML IV SCH (18:46)
[2018-11-16] MEDS: methylPREDNISolone SOD SUC 40 MG/1 ML VIAL IV SCH ×4 (03:27→22:05)
[2018-11-16] MEDS: MEROPENEM 1,000 MG in SODIUM CHLORIDE 0.9% 100 ML IV SCH ×3 (04:45→22:05)
[2018-11-16 05:16] LABS: Basophils % 0.1 % (0.0-0.8); Hematocrit 33.2 VOL% (35.7-47.0); Hemoglobin 9.9 GM/DL (12.0-16.0); Immature Granulocytes % 1.2 %; Immature Granulocytes Absolute 0.17 #; Lymphocytes # 0.6 10*3/uL (1.4-4.0); Mean Corpuscular HGB Conc 29.8 GM/DL (32-36); Mean Corpuscular Hemoglobin 24 PG (27-34); Mean Corpuscular Volume 80.6 FL (87-102); Mean Platelet Volume 12.2 FL (9.6-12.0); Monocytes # 1.5 10*3/uL (0.11-0.8); Monocytes % 10.3 % (1.7-12.7); NRBC # 0.03 10*3/uL; Neutrophils % 84.4 % (38.7-73.9); Platelet Count 374 T/CUMM (130-400); Red Blood Count 4.12 MC/CUMM (3.8-5.5); Red Cell Distribution Width 20.3 % (9.3-17.3); White Blood Count 14.2 T/CUMM (4-12)
[2018-11-16 05:32] LABS: Osmolality,Calculated 287.4 MOS/KG (273-304); Potassium 4.2 MMOL/L (3.5-5.1)
[2018-11-16 05:38] LABS: Hypochromasia 1+; Lymphocytes 5 % (20-55); Microcytosis 1+; Segmented Neutrophils 87 % (50-85); Total Cells Counted 100
[2018-11-16 05:39] LABS: Ovalocytes Slight; Platelet Estimate Normal; Target Cells Slight
[2018-11-16] MEDS: LEVALBUTEROL 1.25 MG/3 ML NEB RESP TX SCH ×3 (07:38→23:51)
[2018-11-16] MEDS: fentaNYL 25 MCG/HR PATCH TRANSDERM SCH (09:25)
[2018-11-16] MEDS: ENOXAPARIN 40 MG/0.4 ML SYRINGE SUBCUT SCH (09:25)
[2018-11-16] MEDS: VANCOMYCIN INJ 1,500 MG in SODIUM CHLORIDE 0.9% 500 ML IV SCH ×2 (11:12→14:30)
[2018-11-16] MEDS ORDERED: FUROSEMIDE 40 MG/4 ML VIAL IV ONE (11:23)
[2018-11-16] MEDS: METHOCARBAMOL 500 MG TABLET PO PRN (14:13)
[2018-11-16] MEDS: MICAFUNGIN 100 MG in SODIUM CHLORIDE 0.9% 100 ML IV SCH (19:17)
[2018-11-17] MEDS: VANCOMYCIN INJ 1,500 MG in SODIUM CHLORIDE 0.9% 500 ML IV SCH ×2 (01:32→14:20)
[2018-11-17] MEDS: MEROPENEM 1,000 MG in SODIUM CHLORIDE 0.9% 100 ML IV SCH ×2 (05:27→12:26)
[2018-11-17] MEDS: BENZONATATE 100 MG CAPSULE PO PRN (05:30)
[2018-11-17] MEDS: LEVALBUTEROL 1.25 MG/3 ML NEB RESP TX SCH ×2 (07:29→15:05)
[2018-11-17] MEDS: ENOXAPARIN 40 MG/0.4 ML SYRINGE SUBCUT SCH (09:28)
[2018-11-17] MEDS: methylPREDNISolone SOD SUC 40 MG/1 ML VIAL IV SCH ×2 (09:30→22:15)
[2018-11-17] MEDS: ONDANSETRON 4 MG/2 ML VIAL IV PRN (17:46)
[2018-11-17] MEDS: MICAFUNGIN 100 MG in SODIUM CHLORIDE 0.9% 100 ML IV SCH (18:26)
[2018-11-18] MEDS: LEVALBUTEROL 1.25 MG/3 ML NEB RESP TX SCH ×4 (00:57→23:46)
[2018-11-18] MEDS: MEROPENEM 1,000 MG in SODIUM CHLORIDE 0.9% 100 ML IV SCH ×3 (01:04→16:38)
[2018-11-18] MEDS: VANCOMYCIN INJ 1,500 MG in SODIUM CHLORIDE 0.9% 500 ML IV SCH ×2 (01:55→13:44)
[2018-11-18] MEDS: ONDANSETRON 4 MG/2 ML VIAL IV PRN (02:06)
[2018-11-18] MEDS: ALUMINUM/MAGNES/SIMETH MAX STR 30 ML UDCUP PO PRN (04:32)
[2018-11-18 06:25] LABS: Calcium 8.5 MG/DL (8.5-10.1); Osmolality,Calculated 284.4 MOS/KG (273-304)
[2018-11-18 06:26] LABS: Basophils % 0.1 % (0.0-0.8); Hematocrit 28.9 VOL% (35.7-47.0); Hemoglobin 8.7 GM/DL (12.0-16.0); Immature Granulocytes % 2.3 %; Immature Granulocytes Absolute 0.33 #; Lymphocytes # 0.6 10*3/uL (1.4-4.0); Lymphocytes % 4.5 % (21.3-54.2); Mean Corpuscular HGB Conc 30.1 GM/DL (32-36); Mean Corpuscular Hemoglobin 24 PG (27-34); Mean Corpuscular Volume 80.1 FL (87-102); Mean Platelet Volume 11.7 FL (9.6-12.0); Monocytes % 14.2 % (1.7-12.7); NRBC # 0.08 10*3/uL; Neutrophils # 11.3 10*3/uL (1.4-7.4); Neutrophils % 78.9 % (38.7-73.9); Platelet Count 425 T/CUMM (130-400); Red Blood Count 3.61 MC/CUMM (3.8-5.5); Red Cell Distribution Width 20.9 % (9.3-17.3); White Blood Count 14.3 T/CUMM (4-12)
[2018-11-18 09:14] LABS: Segmented Neutrophils 89 % (50-85); Total Cells Counted 100
[2018-11-18 09:15] LABS: Platelet Estimate Normal; Polychromasia Slight
[2018-11-18] MEDS: ENOXAPARIN 40 MG/0.4 ML SYRINGE SUBCUT SCH (09:40)
[2018-11-18] MEDS: methylPREDNISolone SOD SUC 40 MG/1 ML VIAL IV SCH (09:41)
[2018-11-18] MEDS: VANCOMYCIN INJ 1,250 MG in SODIUM CHLORIDE 0.9% 250 ML IV SCH (22:29)
[2018-11-19] MEDS: MEROPENEM 1,000 MG in SODIUM CHLORIDE 0.9% 100 ML IV SCH ×3 (02:47→17:31)
[2018-11-19] MEDS ORDERED: ALPRAZolam 0.25 MG TABLET PO ONE (02:54)
[2018-11-19] MEDS: LEVALBUTEROL 1.25 MG/3 ML NEB RESP TX SCH ×2 (07:07→15:08)
[2018-11-19] MEDS: METHOCARBAMOL 500 MG TABLET PO PRN (08:20)
[2018-11-19] MEDS: ACETAMINOPHEN 325 MG TABLET PO PRN (08:21)
[2018-11-19] MEDS: VANCOMYCIN INJ 1,250 MG in SODIUM CHLORIDE 0.9% 250 ML IV SCH ×2 (08:28→22:18)
[2018-11-19] MEDS: ENOXAPARIN 40 MG/0.4 ML SYRINGE SUBCUT SCH (09:55)
[2018-11-19] MEDS: fentaNYL 25 MCG/HR PATCH TRANSDERM SCH (15:30)
[2018-11-19] MEDS: MORPHINE 4 MG/1 ML VIAL IV PRN ×3 (15:31→19:13)
[2018-11-20] MEDS: LEVALBUTEROL 1.25 MG/3 ML NEB RESP TX SCH ×4 (00:35→22:50)
[2018-11-20] MEDS: MORPHINE 4 MG/1 ML VIAL IV PRN (02:13)
[2018-11-20] MEDS: MEROPENEM 1,000 MG in SODIUM CHLORIDE 0.9% 100 ML IV SCH ×3 (03:37→16:22)
[2018-11-20 06:30] LABS: Basophils % 0.1 % (0.0-0.8); Eosinophils % 0.1 % (0.00-10.9); Hematocrit 33.2 VOL% (35.7-47.0); Hemoglobin 9.9 GM/DL (12.0-16.0); Immature Granulocytes % 2.6 %; Immature Granulocytes Absolute 0.39 #; Lymphocytes # 1.2 10*3/uL (1.4-4.0); Lymphocytes % 8.3 % (21.3-54.2); Mean Corpuscular HGB Conc 29.8 GM/DL (32-36); Mean Corpuscular Hemoglobin 23 PG (27-34); Mean Corpuscular Volume 78.3 FL (87-102); Mean Platelet Volume 11.6 FL (9.6-12.0); Monocytes # 3.7 10*3/uL (0.11-0.8); Monocytes % 24.6 % (1.7-12.7); NRBC # 0.14 10*3/uL; Neutrophils # 9.6 10*3/uL (1.4-7.4); Neutrophils % 64.3 % (38.7-73.9); Platelet Count 412 T/CUMM (130-400); Red Blood Count 4.24 MC/CUMM (3.8-5.5); Red Cell Distribution Width 21.2 % (9.3-17.3); White Blood Count 14.9 T/CUMM (4-12)
[2018-11-20 06:54] LABS: Hypochromasia 1+; Lymphocytes 7 % (20-55); Nucleated Red Blood Cells 1 (0-5); Ovalocytes Slight; Platelet Estimate Adequate; Segmented Neutrophils 70 % (50-85); Total Cells Counted 100
[2018-11-20 06:55] LABS: Microcytosis Slight
[2018-11-20 06:57] LABS: Albumin 1.5 G/DL (3.4-5.0); Bilirubin,Total 1.2 MG/DL (0.2-1.0); Calcium 8.6 MG/DL (8.5-10.1); Osmolality,Calculated 264.2 MOS/KG (273-304); Total Protein 5.8 G/DL (6.4-8.3)
[2018-11-20] MEDS: ALPRAZolam 0.25 MG TABLET PO PRN ×2 (07:52→21:39)
[2018-11-20] MEDS: ENOXAPARIN 40 MG/0.4 ML SYRINGE SUBCUT SCH (08:41)
[2018-11-20] MEDS ORDERED: MAGNESIUM SULF RIDER 4 GM in PREMIX 1 EACH IV ONE (08:46)
[2018-11-20] MEDS: predniSONE 20 MG TABLET PO SCH (08:58)
[2018-11-20] MEDS: VANCOMYCIN INJ 1,250 MG in SODIUM CHLORIDE 0.9% 250 ML IV SCH (13:01)
[2018-11-20] MEDS: VANCOMYCIN INJ 1,000 MG in SODIUM CHLORIDE 0.9% 250 ML IV SCH (13:01)
[2018-11-21] MEDS: VANCOMYCIN INJ 1,000 MG in SODIUM CHLORIDE 0.9% 250 ML IV SCH (03:19)
[2018-11-21] MEDS: MEROPENEM 1,000 MG in SODIUM CHLORIDE 0.9% 100 ML IV SCH ×3 (03:45→17:46)
[2018-11-21] MEDS: LEVALBUTEROL 1.25 MG/3 ML NEB RESP TX SCH ×3 (07:21→23:11)
[2018-11-21] MEDS ORDERED: FUROSEMIDE 40 MG/4 ML VIAL IV ONE (07:56)
[2018-11-21] MEDS: ENOXAPARIN 40 MG/0.4 ML SYRINGE SUBCUT SCH (09:57)
[2018-11-21] MEDS: ALPRAZolam 0.25 MG TABLET PO PRN ×2 (09:58→17:56)
[2018-11-21] MEDS: predniSONE 20 MG TABLET PO SCH (09:58)
[2018-11-22] MEDS: MEROPENEM 1,000 MG in SODIUM CHLORIDE 0.9% 100 ML IV SCH ×3 (02:55→17:52)
[2018-11-22 04:51] LABS: Basophils % 0.1 % (0.0-0.8); Hematocrit 30.3 VOL% (35.7-47.0); Hemoglobin 9.2 GM/DL (12.0-16.0); Immature Granulocytes % 3.1 %; Immature Granulocytes Absolute 0.62 #; Lymphocytes # 1.5 10*3/uL (1.4-4.0); Lymphocytes % 7.1 % (21.3-54.2); Mean Corpuscular HGB Conc 30.4 GM/DL (32-36); Mean Corpuscular Hemoglobin 24 PG (27-34); Mean Corpuscular Volume 77.9 FL (87-102); Monocytes # 3.3 10*3/uL (0.11-0.8); Monocytes % 16.3 % (1.7-12.7); NRBC # 0.08 10*3/uL; Neutrophils # 14.9 10*3/uL (1.4-7.4); Neutrophils % 73.4 % (38.7-73.9); Platelet Count 387 T/CUMM (130-400); Red Blood Count 3.89 MC/CUMM (3.8-5.5); Red Cell Distribution Width 20.8 % (9.3-17.3); White Blood Count 20.3 T/CUMM (4-12)
[2018-11-22 05:05] LABS: Albumin 1.4 G/DL (3.4-5.0); Bilirubin,Total 0.6 MG/DL (0.2-1.0); Calcium 8.3 MG/DL (8.5-10.1); Osmolality,Calculated 270.2 MOS/KG (273-304); Potassium 3.9 MMOL/L (3.5-5.1); Total Protein 5.9 G/DL (6.4-8.3)
[2018-11-22 05:21] LABS: Band Neutrophils 1 % (0-10); Hypochromasia 2+; Lymphocytes 3 % (20-55); Microcytosis 1+; Nucleated Red Blood Cells 1 (0-5); Segmented Neutrophils 86 % (50-85); Total Cells Counted 100
[2018-11-22] MEDS: LEVALBUTEROL 1.25 MG/3 ML NEB RESP TX SCH ×3 (06:56→23:49)
[2018-11-22] MEDS ORDERED: MIDAZOLAM 2 MG/2 ML VIAL ONE (07:52)
[2018-11-22] MEDS ORDERED: predniSONE 10 MG TABLET ONE (07:58)
[2018-11-22] MEDS ORDERED: PROMETHAZINE 25 MG/1 ML VIAL IM ONE (08:00)
[2018-11-22] MEDS ORDERED: MEPERIDINE 50 MG/1 ML VIAL IM ONE (08:00)
[2018-11-22] MEDS ORDERED: LIDOCAINE 1% 20 ML VIAL MISC INJ ONE (08:30)
[2018-11-22] MEDS ORDERED: LIDOCAINE 2% 20 ML VIAL RESP TX ONE (08:30)
[2018-11-22] MEDS ORDERED: MIDAZOLAM 10 MG/2 ML VIAL IV ONE (08:30)
[2018-11-22] MEDS ORDERED: LIDOCAINE 2% VISCOUS 100 ML BOTTLE SWISH/SPIT ONE (08:30)
[2018-11-22] MEDS ORDERED: MAGNESIUM SULF RIDER 4 GM in PREMIX 1 EACH IV PRN (08:43)
[2018-11-22] MEDS: predniSONE 10 MG TABLET PO SCH (12:04)
[2018-11-22] MEDS: predniSONE 20 MG TABLET PO SCH (12:05)
[2018-11-22] MEDS: fentaNYL 25 MCG/HR PATCH TRANSDERM SCH (12:06)
[2018-11-22] MEDS: ENOXAPARIN 40 MG/0.4 ML SYRINGE SUBCUT SCH (12:14)
[2018-11-22] MEDS: guaiFENesin 200 MG/10 ML UDCUP PO PRN (12:19)
[2018-11-23] MEDS: MEROPENEM 1,000 MG in SODIUM CHLORIDE 0.9% 100 ML IV SCH ×4 (00:55→16:21)
[2018-11-23] MEDS: ACETAMINOPHEN 325 MG TABLET PO PRN (01:50)
[2018-11-23] MEDS: MORPHINE 4 MG/1 ML VIAL IV PRN ×2 (07:39→21:53)
[2018-11-23] MEDS: ENOXAPARIN 40 MG/0.4 ML SYRINGE SUBCUT SCH ×2 (07:42→15:06)
[2018-11-23] MEDS: predniSONE 10 MG TABLET PO SCH ×2 (07:43→15:06)
[2018-11-23] MEDS: LEVALBUTEROL 1.25 MG/3 ML NEB RESP TX SCH ×3 (08:30→23:48)
[2018-11-23] MEDS: BISOPROLOL 5 MG TABLET PO SCH (15:06)
[2018-11-24] MEDS: MEROPENEM 1,000 MG in SODIUM CHLORIDE 0.9% 100 ML IV SCH ×2 (01:48→09:10)
[2018-11-24 05:42] LABS: Basophils % 0.1 % (0.0-0.8); Hematocrit 32.1 VOL% (35.7-47.0); Hemoglobin 9.7 GM/DL (12.0-16.0); Immature Granulocytes Absolute 1.14 #; Lymphocytes # 1.8 10*3/uL (1.4-4.0); Lymphocytes % 6.3 % (21.3-54.2); Mean Corpuscular HGB Conc 30.2 GM/DL (32-36); Mean Corpuscular Hemoglobin 24 PG (27-34); Mean Corpuscular Volume 77.7 FL (87-102); Mean Platelet Volume 11.9 FL (9.6-12.0); Monocytes # 3.5 10*3/uL (0.11-0.8); Monocytes % 12.2 % (1.7-12.7); NRBC # 0.11 10*3/uL; Neutrophils # 22.4 10*3/uL (1.4-7.4); Neutrophils % 77.4 % (38.7-73.9); Platelet Count 363 T/CUMM (130-400); Red Blood Count 4.13 MC/CUMM (3.8-5.5); Red Cell Distribution Width 21.7 % (9.3-17.3); White Blood Count 28.9 T/CUMM (4-12)
[2018-11-24 06:10] LABS: Albumin 1.4 G/DL (3.4-5.0); Bilirubin,Total 0.8 MG/DL (0.2-1.0); Calcium 8.5 MG/DL (8.5-10.1); Osmolality,Calculated 269.1 MOS/KG (273-304); Potassium 3.9 MMOL/L (3.5-5.1); Total Protein 6.6 G/DL (6.4-8.3)
[2018-11-24 06:14] LABS: Hypochromasia 2+; Lymphocytes 5 % (20-55); Microcytosis 1+; Segmented Neutrophils 88 % (50-85); Target Cells Slight; Total Cells Counted 100
[2018-11-24 06:15] LABS: Platelet Estimate Normal
[2018-11-24] MEDS: LEVALBUTEROL 1.25 MG/3 ML NEB RESP TX SCH ×3 (07:22→23:13)
[2018-11-24] MEDS: MAGNESIUM OXIDE 400 MG TABLET PO PRN (09:09)
[2018-11-24] MEDS: ENOXAPARIN 40 MG/0.4 ML SYRINGE SUBCUT SCH (09:10)
[2018-11-24] MEDS: BISOPROLOL 5 MG TABLET PO SCH (09:10)
[2018-11-24] MEDS: predniSONE 10 MG TABLET PO SCH (09:10)
[2018-11-24] MEDS: MAGNESIUM SULF RIDER 2 GM in PREMIX 1 EACH IV PRN (09:11)
[2018-11-24] MEDS: MORPHINE 4 MG/1 ML VIAL IV PRN (09:27)
[2018-11-24] MEDS: FLUCONAZOLE 200 MG TABLET PO SCH (10:36)
[2018-11-24] MEDS: SERTRALINE 25 MG TABLET PO SCH (21:43)
[2018-11-25] MEDS: ALPRAZolam 0.25 MG TABLET PO PRN (05:56)
[2018-11-25] MEDS: MORPHINE 4 MG/1 ML VIAL IV PRN (07:24)
[2018-11-25] MEDS: LEVALBUTEROL 1.25 MG/3 ML NEB RESP TX SCH ×2 (07:27→15:39)
[2018-11-25] MEDS: predniSONE 10 MG TABLET PO SCH (09:03)
[2018-11-25] MEDS: fentaNYL 25 MCG/HR PATCH TRANSDERM SCH (09:03)
[2018-11-25] MEDS: FLUCONAZOLE 200 MG TABLET PO SCH (09:03)
[2018-11-25] MEDS: ENOXAPARIN 40 MG/0.4 ML SYRINGE SUBCUT SCH (09:04)
[2018-11-25] MEDS: SERTRALINE 25 MG TABLET PO SCH (21:00)
[2018-11-26] MEDS: LEVALBUTEROL 1.25 MG/3 ML NEB RESP TX SCH ×3 (00:34→15:45)
[2018-11-26] MEDS: MORPHINE 4 MG/1 ML VIAL IV PRN (07:27)
[2018-11-26] MEDS: MAGNESIUM HYDROXIDE SUSP 30 ML UDCUP PO PRN (07:33)
[2018-11-26] MEDS: predniSONE 20 MG TABLET PO SCH (09:22)
[2018-11-26] MEDS: FLUCONAZOLE 200 MG TABLET PO SCH (09:22)
[2018-11-26] MEDS: ENOXAPARIN 40 MG/0.4 ML SYRINGE SUBCUT SCH (09:23)
[2018-11-26] MEDS: SERTRALINE 25 MG TABLET PO SCH (21:32)
[2018-11-27] MEDS: LEVALBUTEROL 1.25 MG/3 ML NEB RESP TX SCH ×3 (00:08→13:49)
[2018-11-27] MEDS: MORPHINE 4 MG/1 ML VIAL IV PRN (01:37)
[2018-11-27] MEDS: ENOXAPARIN 40 MG/0.4 ML SYRINGE SUBCUT SCH (09:35)
[2018-11-27] MEDS: predniSONE 20 MG TABLET PO SCH (09:36)
[2018-11-27] MEDS: FLUCONAZOLE 200 MG TABLET PO SCH (09:36)
[2018-11-27 10:10] LABS: Calcium 8.7 MG/DL (8.5-10.1); Osmolality,Calculated 267.4 MOS/KG (273-304); Potassium 4.6 MMOL/L (3.5-5.1)
[2018-11-27] MEDS: METOPROLOL TARTRATE 25 MG TABLET PO SCH ×2 (15:30→20:49)
[2018-11-27] MEDS: MAGNESIUM SULF RIDER 2 GM in PREMIX 1 EACH IV PRN (15:45)
[2018-11-27] MEDS: SERTRALINE 25 MG TABLET PO SCH (20:49)
[2018-11-28] MEDS: LEVALBUTEROL 1.25 MG/3 ML NEB RESP TX SCH ×4 (00:34→22:50)
[2018-11-28] MEDS: MAGNESIUM HYDROXIDE SUSP 30 ML UDCUP PO PRN ×2 (01:38→05:16)
[2018-11-28] MEDS: METOPROLOL TARTRATE 25 MG TABLET PO SCH ×2 (03:09→09:50)
[2018-11-28 05:26] LABS: Basophils # 0.1 10*3/uL (0.0-0.2); Basophils % 0.2 % (0.0-0.8); Hematocrit 32.8 VOL% (35.7-47.0); Hemoglobin 9.9 GM/DL (12.0-16.0); Immature Granulocytes % 3.4 %; Immature Granulocytes Absolute 1.05 #; Lymphocytes # 1.9 10*3/uL (1.4-4.0); Lymphocytes % 6.1 % (21.3-54.2); Mean Corpuscular HGB Conc 30.2 GM/DL (32-36); Mean Corpuscular Hemoglobin 23 PG (27-34); Mean Platelet Volume 11.7 FL (9.6-12.0); Monocytes # 2.4 10*3/uL (0.11-0.8); Monocytes % 7.8 % (1.7-12.7); Neutrophils # 25.8 10*3/uL (1.4-7.4); Neutrophils % 82.5 % (38.7-73.9); Platelet Count 459 T/CUMM (130-400); Red Blood Count 4.26 MC/CUMM (3.8-5.5); Red Cell Distribution Width 22.4 % (9.3-17.3); White Blood Count 31.2 T/CUMM (4-12)
[2018-11-28 05:50] LABS: Hypochromasia 2+; Lymphocytes 2 % (20-55); Platelet Estimate Adequate; Segmented Neutrophils 92 % (50-85); Total Cells Counted 100
[2018-11-28 05:54] LABS: Calcium 9.1 MG/DL (8.5-10.1); Osmolality,Calculated 265.4 MOS/KG (273-304); Potassium 4.9 MMOL/L (3.5-5.1)
[2018-11-28] MEDS: FLUCONAZOLE 200 MG TABLET PO SCH (09:50)
[2018-11-28] MEDS: BISOPROLOL 5 MG TABLET PO SCH ×2 (09:50→21:43)
[2018-11-28] MEDS: ENOXAPARIN 40 MG/0.4 ML SYRINGE SUBCUT SCH (09:50)
[2018-11-28] MEDS: predniSONE 20 MG TABLET PO SCH (09:50)
[2018-11-28] MEDS: ONDANSETRON 4 MG TABLET PO PRN ×2 (10:27→18:06)
[2018-11-28] MEDS: PIPERACILLIN/TAZOBACTAM 3,375 MG in SODIUM CHLORIDE 0.9% 100 ML IV SCH ×2 (14:16→21:46)
[2018-11-28] MEDS ORDERED: VANCOMYCIN INJ 1,000 MG in SODIUM CHLORIDE 0.9% 250 ML IV SCH (17:00)
[2018-11-28] MEDS: METHOCARBAMOL 500 MG TABLET PO PRN (18:06)
[2018-11-28] MEDS: SERTRALINE 25 MG TABLET PO SCH (21:45)
[2018-11-29] MEDS: PIPERACILLIN/TAZOBACTAM 3,375 MG in SODIUM CHLORIDE 0.9% 100 ML IV SCH ×3 (05:02→20:22)
[2018-11-29] MEDS: ONDANSETRON 4 MG TABLET PO PRN (05:08)
[2018-11-29] MEDS: METHOCARBAMOL 500 MG TABLET PO PRN (05:17)
[2018-11-29] MEDS: LEVALBUTEROL 1.25 MG/3 ML NEB RESP TX SCH ×2 (06:58→13:42)
[2018-11-29] MEDS: ENOXAPARIN 40 MG/0.4 ML SYRINGE SUBCUT SCH (09:11)
[2018-11-29] MEDS: FLUCONAZOLE 200 MG TABLET PO SCH (09:11)
[2018-11-29] MEDS: predniSONE 10 MG TABLET PO SCH (09:11)
[2018-11-29] MEDS: BISOPROLOL 5 MG TABLET PO SCH (09:11)
[2018-11-29 09:16] LABS: Basophils % 0.1 % (0.0-0.8); Hematocrit 28.8 VOL% (35.7-47.0); Hemoglobin 8.7 GM/DL (12.0-16.0); Immature Granulocytes Absolute 0.74 #; Lymphocytes # 1.1 10*3/uL (1.4-4.0); Lymphocytes % 4.6 % (21.3-54.2); Mean Corpuscular HGB Conc 30.2 GM/DL (32-36); Mean Corpuscular Hemoglobin 23 PG (27-34); Mean Corpuscular Volume 77.2 FL (87-102); Monocytes # 1.7 10*3/uL (0.11-0.8); Monocytes % 6.9 % (1.7-12.7); NRBC # 0.07 10*3/uL; Neutrophils # 21.2 10*3/uL (1.4-7.4); Neutrophils % 85.4 % (38.7-73.9); Platelet Count 329 T/CUMM (130-400); Red Blood Count 3.73 MC/CUMM (3.8-5.5); Red Cell Distribution Width 22.5 % (9.3-17.3); White Blood Count 24.9 T/CUMM (4-12)
[2018-11-29 09:22] LABS: Calcium 8.4 MG/DL (8.5-10.1); Osmolality,Calculated 268.4 MOS/KG (273-304); Potassium 4.6 MMOL/L (3.5-5.1)
[2018-11-29 09:47] LABS: Hypochromasia 1+; Lymphocytes 4 % (20-55); Platelet Estimate Adequate; Segmented Neutrophils 88 % (50-85); Total Cells Counted 100
[2018-11-29 09:48] LABS: Microcytosis Slight
[2018-11-29] MEDS ORDERED: LACTULOSE 20 GM/30 ML UDCUP PO PRN (17:09)
[2018-11-29] MEDS ORDERED: chlorproMAZINE INJ 50 MG in SODIUM CHLORIDE 0.9% 100 ML IV PRN (17:09)
[2018-11-29] MEDS ORDERED: chlorproMAZINE INJ 25 MG in SODIUM CHLORIDE 0.9% 100 ML IV PRN (17:09)
[2018-11-29] MEDS ORDERED: PROMETHAZINE INJ 25 MG in SODIUM CHLORIDE 0.9% 50 ML IV PRN (17:09)
[2018-11-29] MEDS ORDERED: TEMAZEPAM 7.5 MG CAPSULE PO PRN (17:09)
[2018-11-29] MEDS ORDERED: MYLANTA/LIDO VISC 2:1 300 ML BOTTLE SWISH/SWAL PRN (17:09)
[2018-11-29] MEDS ORDERED: MAGNESIUM HYDROXIDE SUSP 30 ML UDCUP PO PRN (17:09)
[2018-11-29] MEDS: ONDANSETRON 4 MG/2 ML VIAL IV PRN (17:23)
[2018-11-29] MEDS: ALPRAZolam 0.25 MG TABLET PO PRN (17:23)
[2018-11-29] MEDS: SERTRALINE 25 MG TABLET PO SCH (20:21)
[2018-11-29] MEDS: traMADol 50 MG TABLET PO PRN (23:20)
[2018-11-30] MEDS: LEVALBUTEROL 1.25 MG/3 ML NEB RESP TX SCH ×4 (00:27→23:43)
[2018-11-30] MEDS: PIPERACILLIN/TAZOBACTAM 3,375 MG in SODIUM CHLORIDE 0.9% 100 ML IV SCH ×3 (04:21→21:02)
[2018-11-30] MEDS: ENOXAPARIN 40 MG/0.4 ML SYRINGE SUBCUT SCH (08:45)
[2018-11-30] MEDS: ONDANSETRON 4 MG/2 ML VIAL IV PRN (08:45)
[2018-11-30] MEDS: FLUCONAZOLE 200 MG TABLET PO SCH (08:46)
[2018-11-30] MEDS: predniSONE 10 MG TABLET PO SCH (08:46)
[2018-11-30] MEDS: fentaNYL 25 MCG/HR PATCH TRANSDERM SCH (12:29)
[2018-11-30] MEDS: DOCUSATE SODIUM 100 MG CAPSULE PO SCH (16:09)
[2018-11-30] MEDS: SERTRALINE 25 MG TABLET PO SCH (21:02)
[2018-12-01] MEDS: traMADol 50 MG TABLET PO PRN (01:44)
[2018-12-01] MEDS: PIPERACILLIN/TAZOBACTAM 3,375 MG in SODIUM CHLORIDE 0.9% 100 ML IV SCH ×3 (04:29→20:07)
[2018-12-01] MEDS: POLYETHYLENE GLYCOL POWDER 17 GM PACK PO SCH ×3 (04:29→20:07)
[2018-12-01 04:30] LABS: Basophils % 0.1 % (0.0-0.8); Hematocrit 28.9 VOL% (35.7-47.0); Hemoglobin 8.8 GM/DL (12.0-16.0); Immature Granulocytes % 3.7 %; Immature Granulocytes Absolute 0.94 #; Lymphocytes # 1.5 10*3/uL (1.4-4.0); Lymphocytes % 5.8 % (21.3-54.2); Mean Corpuscular HGB Conc 30.4 GM/DL (32-36); Mean Corpuscular Hemoglobin 23 PG (27-34); Mean Corpuscular Volume 75.7 FL (87-102); Mean Platelet Volume 12.7 FL (9.6-12.0); Monocytes # 1.9 10*3/uL (0.11-0.8); Monocytes % 7.4 % (1.7-12.7); NRBC # 0.12 10*3/uL; Platelet Count 354 T/CUMM (130-400); Red Blood Count 3.82 MC/CUMM (3.8-5.5); White Blood Count 25.3 T/CUMM (4-12)
[2018-12-01 05:01] LABS: Calcium 8.6 MG/DL (8.5-10.1); Osmolality,Calculated 267.4 MOS/KG (273-304); Potassium 3.6 MMOL/L (3.5-5.1)
[2018-12-01 05:47] LABS: Band Neutrophils 1 % (0-10); Lymphocytes 6 % (20-55); Metamyelocytes 1 %; Nucleated Red Blood Cells 3 (0-5); Platelet Estimate Normal; Segmented Neutrophils 85 % (50-85); Total Cells Counted 100
[2018-12-01 05:48] LABS: Anisocytosis 2+; Hypochromasia 2+; Macrocytosis Slight; Microcytosis 2+; Polychromasia 1+; Target Cells 2+
[2018-12-01] MEDS: LEVALBUTEROL 1.25 MG/3 ML NEB RESP TX SCH ×3 (07:27→23:33)
[2018-12-01] MEDS: ENOXAPARIN 40 MG/0.4 ML SYRINGE SUBCUT SCH (08:36)
[2018-12-01] MEDS: FLUCONAZOLE 200 MG TABLET PO SCH (08:36)
[2018-12-01] MEDS: DOCUSATE SODIUM 100 MG CAPSULE PO SCH (08:36)
[2018-12-01] MEDS: predniSONE 10 MG TABLET PO SCH (08:52)
[2018-12-01] MEDS: SERTRALINE 25 MG TABLET PO SCH (20:06)
[2018-12-02] MEDS: PIPERACILLIN/TAZOBACTAM 3,375 MG in SODIUM CHLORIDE 0.9% 100 ML IV SCH ×3 (04:12→20:00)
[2018-12-02 05:45] LABS: Basophils % 0.1 % (0.0-0.8); Hematocrit 30.3 VOL% (35.7-47.0); Immature Granulocytes % 3.4 %; Lymphocytes # 1.6 10*3/uL (1.4-4.0); Lymphocytes % 5.5 % (21.3-54.2); Mean Corpuscular HGB Conc 29.7 GM/DL (32-36); Mean Corpuscular Hemoglobin 23 PG (27-34); Mean Corpuscular Volume 77.1 FL (87-102); Mean Platelet Volume 11.8 FL (9.6-12.0); Monocytes # 1.7 10*3/uL (0.11-0.8); Monocytes % 5.8 % (1.7-12.7); NRBC # 0.16 10*3/uL; Neutrophils # 24.7 10*3/uL (1.4-7.4); Neutrophils % 85.2 % (38.7-73.9); Platelet Count 349 T/CUMM (130-400); Red Blood Count 3.93 MC/CUMM (3.8-5.5); Red Cell Distribution Width 22.6 % (9.3-17.3)
[2018-12-02 06:06] LABS: Osmolality,Calculated 263.5 MOS/KG (273-304); Potassium 3.6 MMOL/L (3.5-5.1)
[2018-12-02 06:37] LABS: Anisocytosis 1+; Lymphocytes 3 % (20-55); Microcytosis 1+; Platelet Estimate Normal; Segmented Neutrophils 88 % (50-85); Total Cells Counted 100
[2018-12-02] MEDS: LEVALBUTEROL 1.25 MG/3 ML NEB RESP TX SCH ×3 (07:19→23:56)
[2018-12-02] MEDS: CYCLOBENZAPRINE 10 MG TABLET PO PRN (09:10)
[2018-12-02] MEDS: FLUCONAZOLE 200 MG TABLET PO SCH ×2 (11:27→11:28)
[2018-12-02] MEDS: ENOXAPARIN 40 MG/0.4 ML SYRINGE SUBCUT SCH (11:27)
[2018-12-02] MEDS: DOCUSATE SODIUM 100 MG CAPSULE PO SCH (12:53)
[2018-12-02] MEDS: POLYETHYLENE GLYCOL POWDER 17 GM PACK PO SCH ×2 (12:53→20:02)
[2018-12-02] MEDS: SERTRALINE 25 MG TABLET PO SCH (20:01)
[2018-12-03] MEDS: PIPERACILLIN/TAZOBACTAM 3,375 MG in SODIUM CHLORIDE 0.9% 100 ML IV SCH ×3 (03:54→20:06)
[2018-12-03 05:41] LABS: Basophils % 0.1 % (0.0-0.8); Eosinophils % 0.1 % (0.00-10.9); Hematocrit 27.9 VOL% (35.7-47.0); Hemoglobin 8.5 GM/DL (12.0-16.0); Immature Granulocytes % 3.4 %; Immature Granulocytes Absolute 0.91 #; Lymphocytes # 1.3 10*3/uL (1.4-4.0); Lymphocytes % 4.8 % (21.3-54.2); Mean Corpuscular HGB Conc 30.5 GM/DL (32-36); Mean Corpuscular Hemoglobin 23 PG (27-34); Mean Corpuscular Volume 75.8 FL (87-102); Monocytes % 7.3 % (1.7-12.7); NRBC # 0.13 10*3/uL; Neutrophils # 22.7 10*3/uL (1.4-7.4); Neutrophils % 84.3 % (38.7-73.9); Platelet Count 267 T/CUMM (130-400); Red Blood Count 3.68 MC/CUMM (3.8-5.5); Red Cell Distribution Width 22.5 % (9.3-17.3)
[2018-12-03 05:54] LABS: % Iron Saturation 25.9 % (18-50); Calcium 8.7 MG/DL (8.5-10.1); Osmolality,Calculated 266.4 MOS/KG (273-304)
[2018-12-03 06:53] LABS: Anisocytosis 1+; Band Neutrophils 1 % (0-10); Lymphocytes 6 % (20-55); Nucleated Red Blood Cells 2 (0-5); Segmented Neutrophils 89 % (50-85); Total Cells Counted 100
[2018-12-03 06:54] LABS: Hypochromasia 1+; Ovalocytes 1+; Platelet Estimate Adequate; Target Cells 1+
[2018-12-03] MEDS: LEVALBUTEROL 1.25 MG/3 ML NEB RESP TX SCH ×2 (08:16→16:09)
[2018-12-03] MEDS: fentaNYL 25 MCG/HR PATCH TRANSDERM SCH (09:03)
[2018-12-03] MEDS: FLUCONAZOLE 200 MG TABLET PO SCH ×2 (09:04→13:02)
[2018-12-03] MEDS: DOCUSATE SODIUM 100 MG CAPSULE PO SCH (09:04)
[2018-12-03] MEDS: CYCLOBENZAPRINE 10 MG TABLET PO PRN (09:06)
[2018-12-03] MEDS: DEXTROSE 5% NACL 0.45% 1,000 ML IV SCH ×2 (09:48→20:08)
[2018-12-03] MEDS: POLYETHYLENE GLYCOL POWDER 17 GM PACK PO SCH ×2 (13:02→20:08)
[2018-12-03] MEDS: METOPROLOL TARTRATE 5 MG/5 ML VIAL IV PRN ×2 (14:47→21:28)
[2018-12-03] MEDS: ENOXAPARIN 40 MG/0.4 ML SYRINGE SUBCUT SCH (18:29)
[2018-12-03] MEDS: SERTRALINE 25 MG TABLET PO SCH (20:05)
[2018-12-03] MEDS: MIRTAZAPINE 15 MG TABLET PO SCH (20:05)
[2018-12-04] MEDS: LEVALBUTEROL 1.25 MG/3 ML NEB RESP TX SCH ×3 (00:18→15:15)
[2018-12-04] MEDS: PIPERACILLIN/TAZOBACTAM 3,375 MG in SODIUM CHLORIDE 0.9% 100 ML IV SCH ×3 (04:01→23:50)
[2018-12-04] MEDS: METOPROLOL TARTRATE 5 MG/5 ML VIAL IV PRN (04:29)
[2018-12-04 04:34] LABS: Basophils % 0.2 % (0.0-0.8); Eosinophils % 0.1 % (0.00-10.9); Hematocrit 25.7 VOL% (35.7-47.0); Hemoglobin 7.9 GM/DL (12.0-16.0); Immature Granulocytes % 2.7 %; Immature Granulocytes Absolute 0.59 #; Lymphocytes % 4.5 % (21.3-54.2); Mean Corpuscular HGB Conc 30.7 GM/DL (32-36); Mean Corpuscular Hemoglobin 23 PG (27-34); Mean Corpuscular Volume 75.1 FL (87-102); Monocytes # 1.6 10*3/uL (0.11-0.8); Monocytes % 7.1 % (1.7-12.7); Neutrophils # 18.7 10*3/uL (1.4-7.4); Neutrophils % 85.4 % (38.7-73.9); Platelet Count 199 T/CUMM (130-400); Red Blood Count 3.42 MC/CUMM (3.8-5.5); Red Cell Distribution Width 22.5 % (9.3-17.3); White Blood Count 21.9 T/CUMM (4-12)
[2018-12-04 05:04] LABS: Calcium 7.9 MG/DL (8.5-10.1); Osmolality,Calculated 263.7 MOS/KG (273-304); Potassium 3.5 MMOL/L (3.5-5.1)
[2018-12-04 05:15] LABS: Band Neutrophils 3 % (0-10); Hypochromasia 1+; Lymphocytes 5 % (20-55); Macrocytosis Slight; Ovalocytes Slight; Platelet Estimate Adequate; Polychromasia Slight; Segmented Neutrophils 85 % (50-85); Target Cells Few; Total Cells Counted 100
[2018-12-04] MEDS ORDERED: MAGNESIUM SULF RIDER 4 GM in PREMIX 1 EACH IV ONE (08:59)
[2018-12-04] MEDS: FLUCONAZOLE 200 MG TABLET PO SCH ×2 (09:53)
[2018-12-04] MEDS: POLYETHYLENE GLYCOL POWDER 17 GM PACK PO SCH ×2 (09:54→20:18)
[2018-12-04] MEDS: DOCUSATE SODIUM 100 MG CAPSULE PO SCH (09:54)
[2018-12-04] MEDS: ENOXAPARIN 40 MG/0.4 ML SYRINGE SUBCUT SCH (09:55)
[2018-12-04] MEDS: METOPROLOL TARTRATE 5 MG/5 ML VIAL IV SCH ×3 (13:35→23:53)
[2018-12-04] MEDS: MEROPENEM 1,000 MG in SODIUM CHLORIDE 0.9% 100 ML IV SCH ×2 (14:37→22:26)
[2018-12-04] MEDS: DEXTROSE 5% NACL 0.45% 1,000 ML IV SCH (15:39)
[2018-12-04] MEDS: SERTRALINE 50 MG TABLET PO SCH (20:19)
[2018-12-04] MEDS: MIRTAZAPINE 15 MG TABLET PO SCH (20:19)
[2018-12-05] MEDS: LEVALBUTEROL 1.25 MG/3 ML NEB RESP TX SCH ×3 (00:12→15:15)
[2018-12-05] MEDS: ONDANSETRON 4 MG/2 ML VIAL IV PRN (05:01)
[2018-12-05] MEDS: METOPROLOL TARTRATE 5 MG/5 ML VIAL IV SCH ×3 (05:02→18:07)
[2018-12-05] MEDS: DEXTROSE 5% NACL 0.45% 1,000 ML IV SCH ×2 (05:40→08:40)
[2018-12-05] MEDS: MEROPENEM 1,000 MG in SODIUM CHLORIDE 0.9% 100 ML IV SCH ×3 (05:42→22:10)
[2018-12-05 07:32] LABS: Basophils % 0.1 % (0.0-0.8); Eosinophils % 0.1 % (0.00-10.9); Hematocrit 23.5 VOL% (35.7-47.0); Hemoglobin 7.4 GM/DL (12.0-16.0); Immature Granulocytes % 2.8 %; Immature Granulocytes Absolute 0.51 #; Lymphocytes # 1.1 10*3/uL (1.4-4.0); Lymphocytes % 6.1 % (21.3-54.2); Mean Corpuscular HGB Conc 31.5 GM/DL (32-36); Mean Corpuscular Hemoglobin 23 PG (27-34); Monocytes # 1.5 10*3/uL (0.11-0.8); Monocytes % 8.2 % (1.7-12.7); NRBC # 0.09 10*3/uL; Neutrophils # 15.3 10*3/uL (1.4-7.4); Neutrophils % 82.7 % (38.7-73.9); Platelet Count 174 T/CUMM (130-400); Red Blood Count 3.22 MC/CUMM (3.8-5.5); Red Cell Distribution Width 22.5 % (9.3-17.3); White Blood Count 18.5 T/CUMM (4-12)
[2018-12-05 07:51] LABS: Band Neutrophils 2 % (0-10); Hypochromasia 2+; Lymphocytes 6 % (20-55); Nucleated Red Blood Cells 2 (0-5); Platelet Estimate Adequate; Segmented Neutrophils 87 % (50-85); Total Cells Counted 100
[2018-12-05 07:52] LABS: Macrocytosis Slight; Ovalocytes Slight
[2018-12-05 08:01] LABS: Bilirubin,Total 1.9 MG/DL (0.2-1.0); Osmolality,Calculated 255.1 MOS/KG (273-304); Potassium 3.3 MMOL/L (3.5-5.1); Total Protein 5.7 G/DL (6.4-8.3)
[2018-12-05] MEDS: PIPERACILLIN/TAZOBACTAM 3,375 MG in SODIUM CHLORIDE 0.9% 100 ML IV SCH ×2 (08:27→18:13)
[2018-12-05] MEDS: DOCUSATE SODIUM 100 MG CAPSULE PO SCH (08:27)
[2018-12-05] MEDS: FLUCONAZOLE 200 MG TABLET PO SCH (08:27)
[2018-12-05] MEDS: POLYETHYLENE GLYCOL POWDER 17 GM PACK PO SCH ×2 (08:27→22:11)
[2018-12-05] MEDS: ENOXAPARIN 40 MG/0.4 ML SYRINGE SUBCUT SCH (08:30)
[2018-12-05] MEDS ORDERED: SODIUM CHLORIDE 0.9% 1,000 ML IV PRN (08:49)
[2018-12-05] MEDS ORDERED: FUROSEMIDE 20 MG/2 ML VIAL IV ONE ×2 (10:56→22:30)
[2018-12-05] MEDS ORDERED: diphenhydrAMINE 50 MG/1 ML VIAL IV ONE (10:57)
[2018-12-05] MEDS ORDERED: ACETAMINOPHEN 500 MG TABLET PO ONE (10:58)
[2018-12-05] MEDS ORDERED: POTASSIUM CHLORIDE RIDER 10 MEQ in PREMIX 1 EACH IV PRN (10:59)
[2018-12-05] MEDS ORDERED: MAGNESIUM SULF RIDER 4 GM in PREMIX 1 EACH IV PRN (10:59)
[2018-12-05] MEDS ORDERED: MAGNESIUM SULF RIDER 2 GM in PREMIX 1 EACH IV PRN (10:59)
[2018-12-05] MEDS: CYCLOBENZAPRINE 10 MG TABLET PO SCH ×3 (12:33→22:09)
[2018-12-05] MEDS: POTASSIUM CHLORIDE 8 MEQ CAPSULE PO SCH (12:39)
[2018-12-05] MEDS: LIDOCAINE 5% PATCH TRANSDERM SCH (12:39)
[2018-12-05] MEDS: MORPHINE ER 15 MG TABLET PO SCH ×2 (15:23→23:07)
[2018-12-05] MEDS: METHOCARBAMOL INJ 1,000 MG in SODIUM CHLORIDE 0.9% 100 ML IV SCH ×2 (15:38→23:06)
[2018-12-05] MEDS: SERTRALINE 50 MG TABLET PO SCH (22:09)
[2018-12-05] MEDS: MIRTAZAPINE 15 MG TABLET PO SCH (22:10)
[2018-12-06 00:08] LABS: Hematocrit 33.7 VOL% (35.7-47.0); Hemoglobin 10.6 GM/DL (12.0-16.0)
[2018-12-06] MEDS: METOPROLOL TARTRATE 5 MG/5 ML VIAL IV SCH ×4 (00:37→18:22)
[2018-12-06] MEDS: PIPERACILLIN/TAZOBACTAM 3,375 MG in SODIUM CHLORIDE 0.9% 100 ML IV SCH ×3 (00:39→19:16)
[2018-12-06] MEDS: LEVALBUTEROL 1.25 MG/3 ML NEB RESP TX SCH ×3 (01:41→14:19)
[2018-12-06 04:48] LABS: Basophils % 0.1 % (0.0-0.8); Eosinophils % 0.1 % (0.00-10.9); Hematocrit 31.9 VOL% (35.7-47.0); Hemoglobin 9.9 GM/DL (12.0-16.0); Immature Granulocytes Absolute 0.29 #; Lymphocytes # 0.8 10*3/uL (1.4-4.0); Lymphocytes % 5.3 % (21.3-54.2); Mean Corpuscular Hemoglobin 24 PG (27-34); Mean Corpuscular Volume 77.6 FL (87-102); Monocytes # 1.1 10*3/uL (0.11-0.8); Monocytes % 7.9 % (1.7-12.7); NRBC # 0.09 10*3/uL; Neutrophils # 12.2 10*3/uL (1.4-7.4); Neutrophils % 84.6 % (38.7-73.9); Platelet Count 156 T/CUMM (130-400); Red Blood Count 4.11 MC/CUMM (3.8-5.5); Red Cell Distribution Width 22.5 % (9.3-17.3); White Blood Count 14.4 T/CUMM (4-12)
[2018-12-06 05:12] LABS: Hypochromasia 1+; Platelet Estimate Adequate; Target Cells Few
[2018-12-06 05:13] LABS: Macrocytosis Slight
[2018-12-06 05:15] LABS: Calcium 7.8 MG/DL (8.5-10.1); Osmolality,Calculated 272.1 MOS/KG (273-304); Potassium 3.7 MMOL/L (3.5-5.1); Total Protein 5.1 G/DL (6.4-8.3)
[2018-12-06] MEDS: METHOCARBAMOL INJ 1,000 MG in SODIUM CHLORIDE 0.9% 100 ML IV SCH ×3 (05:28→23:19)
[2018-12-06] MEDS: MEROPENEM 1,000 MG in SODIUM CHLORIDE 0.9% 100 ML IV SCH ×3 (05:29→23:53)
[2018-12-06] MEDS ORDERED: CYCLOBENZAPRINE 10 MG TABLET PO PRN (08:17)
[2018-12-06] MEDS ORDERED: ALBUMIN 25% 25 GM in PREMIX 1 EACH IV ONE (08:35)
[2018-12-06] MEDS: POTASSIUM CHLORIDE 8 MEQ CAPSULE PO SCH (09:57)
[2018-12-06] MEDS: DOCUSATE SODIUM 100 MG CAPSULE PO SCH (09:57)
[2018-12-06] MEDS: LIDOCAINE 5% PATCH TRANSDERM SCH (09:57)
[2018-12-06] MEDS: ENOXAPARIN 40 MG/0.4 ML SYRINGE SUBCUT SCH (09:58)
[2018-12-06] MEDS: fentaNYL 25 MCG/HR PATCH TRANSDERM SCH (09:58)
[2018-12-06] MEDS: FLUCONAZOLE 200 MG TABLET PO SCH (09:58)
[2018-12-06] MEDS: POLYETHYLENE GLYCOL POWDER 17 GM PACK PO SCH ×2 (09:58→20:28)
[2018-12-06] MEDS: MIRTAZAPINE 15 MG TABLET PO SCH (21:11)
[2018-12-06] MEDS: SERTRALINE 50 MG TABLET PO SCH (21:12)
[2018-12-07] MEDS: LEVALBUTEROL 1.25 MG/3 ML NEB RESP TX SCH ×3 (00:13→14:50)
[2018-12-07] MEDS: METOPROLOL TARTRATE 5 MG/5 ML VIAL IV SCH ×4 (00:39→19:02)
[2018-12-07] MEDS: PIPERACILLIN/TAZOBACTAM 3,375 MG in SODIUM CHLORIDE 0.9% 100 ML IV SCH ×3 (02:42→22:52)
[2018-12-07 06:40] LABS: Albumin 1.4 G/DL (3.4-5.0); Bilirubin,Total 2.4 MG/DL (0.2-1.0); Calcium 8.2 MG/DL (8.5-10.1); Osmolality,Calculated 272.7 MOS/KG (273-304); Potassium 2.9 MMOL/L (3.5-5.1)
[2018-12-07] MEDS: METHOCARBAMOL INJ 1,000 MG in SODIUM CHLORIDE 0.9% 100 ML IV SCH ×3 (06:46→21:29)
[2018-12-07] MEDS: MEROPENEM 1,000 MG in SODIUM CHLORIDE 0.9% 100 ML IV SCH ×3 (07:27→22:03)
[2018-12-07] MEDS: DOCUSATE SODIUM 100 MG CAPSULE PO SCH (10:13)
[2018-12-07] MEDS: ENOXAPARIN 40 MG/0.4 ML SYRINGE SUBCUT SCH (10:14)
[2018-12-07] MEDS: MAGNESIUM SULF RIDER 2 GM in PREMIX 1 EACH IV PRN (10:14)
[2018-12-07] MEDS: FLUCONAZOLE 200 MG TABLET PO SCH (10:14)
[2018-12-07] MEDS: MAGNESIUM OXIDE 400 MG TABLET PO PRN (10:14)
[2018-12-07] MEDS: POTASSIUM CHLORIDE 8 MEQ CAPSULE PO SCH (10:14)
[2018-12-07] MEDS: LIDOCAINE 5% PATCH TRANSDERM SCH (10:15)
[2018-12-07] MEDS: POLYETHYLENE GLYCOL POWDER 17 GM PACK PO SCH ×2 (12:39→21:24)
[2018-12-07] MEDS: SERTRALINE 50 MG TABLET PO SCH (21:25)
[2018-12-07] MEDS: MIRTAZAPINE 15 MG TABLET PO SCH (21:25)
[2018-12-08] MEDS: METOPROLOL TARTRATE 5 MG/5 ML VIAL IV SCH ×4 (00:24→20:00)
[2018-12-08] MEDS: LEVALBUTEROL 1.25 MG/3 ML NEB RESP TX SCH ×4 (00:33→23:10)
[2018-12-08 04:35] LABS: Basophils % 0.3 % (0.0-0.8); Eosinophils % 0.1 % (0.00-10.9); Hematocrit 31.1 VOL% (35.7-47.0); Hemoglobin 9.7 GM/DL (12.0-16.0); Immature Granulocytes % 2.8 %; Immature Granulocytes Absolute 0.39 #; Lymphocytes # 1.1 10*3/uL (1.4-4.0); Lymphocytes % 7.7 % (21.3-54.2); Mean Corpuscular HGB Conc 31.2 GM/DL (32-36); Mean Corpuscular Hemoglobin 24 PG (27-34); Monocytes # 1.7 10*3/uL (0.11-0.8); Neutrophils # 10.7 10*3/uL (1.4-7.4); Neutrophils % 77.1 % (38.7-73.9); Platelet Count 128 T/CUMM (130-400); Red Blood Count 4.04 MC/CUMM (3.8-5.5); Red Cell Distribution Width 22.9 % (9.3-17.3); White Blood Count 13.9 T/CUMM (4-12)
[2018-12-08 04:59] LABS: Band Neutrophils 1 % (0-10); Hypochromasia 1+; Lymphocytes 8 % (20-55); Macrocytosis Slight; Nucleated Red Blood Cells 1 (0-5); Platelet Estimate Adequate; Polychromasia Slight; Segmented Neutrophils 80 % (50-85); Target Cells Few; Total Cells Counted 100
[2018-12-08] MEDS: METHOCARBAMOL INJ 1,000 MG in SODIUM CHLORIDE 0.9% 100 ML IV SCH ×3 (05:51→21:54)
[2018-12-08] MEDS: ALPRAZolam 0.25 MG TABLET PO PRN (05:55)
[2018-12-08] MEDS: MEROPENEM 1,000 MG in SODIUM CHLORIDE 0.9% 100 ML IV SCH (06:25)
[2018-12-08 06:27] LABS: Albumin 1.2 G/DL (3.4-5.0); Bilirubin,Total 2.8 MG/DL (0.2-1.0); Calcium 8.2 MG/DL (8.5-10.1); Osmolality,Calculated 271.8 MOS/KG (273-304); Potassium 3.7 MMOL/L (3.5-5.1); Total Protein 5.8 G/DL (6.4-8.3)
[2018-12-08] MEDS: PIPERACILLIN/TAZOBACTAM 3,375 MG in SODIUM CHLORIDE 0.9% 100 ML IV SCH ×3 (06:55→22:41)
[2018-12-08] MEDS: POTASSIUM CHLORIDE 8 MEQ CAPSULE PO SCH (11:47)
[2018-12-08] MEDS: DOCUSATE SODIUM 100 MG CAPSULE PO SCH (11:47)
[2018-12-08] MEDS: POLYETHYLENE GLYCOL POWDER 17 GM PACK PO SCH ×2 (11:49→21:09)
[2018-12-08] MEDS: ENOXAPARIN 40 MG/0.4 ML SYRINGE SUBCUT SCH (12:04)
[2018-12-08] MEDS: FLUCONAZOLE 200 MG TABLET PO SCH (12:04)
[2018-12-08] MEDS: LIDOCAINE 5% PATCH TRANSDERM SCH (12:05)
[2018-12-08] MEDS: DEXTROSE 5% NACL 0.22% 1,000 ML IV SCH (15:38)
[2018-12-08] MEDS ORDERED: HEPARIN LOCK FLUSH 500 UNIT/5 ML SYRINGE IV ONE (19:38)
[2018-12-08] MEDS: MIRTAZAPINE 15 MG TABLET PO SCH (21:08)
[2018-12-09] MEDS: METOPROLOL TARTRATE 5 MG/5 ML VIAL IV SCH ×4 (00:02→21:20)
[2018-12-09] MEDS: METHOCARBAMOL INJ 1,000 MG in SODIUM CHLORIDE 0.9% 100 ML IV SCH ×3 (05:43→21:47)
[2018-12-09] MEDS: PIPERACILLIN/TAZOBACTAM 3,375 MG in SODIUM CHLORIDE 0.9% 100 ML IV SCH ×3 (06:18→23:06)
[2018-12-09 06:35] LABS: Albumin 1.1 G/DL (3.4-5.0); Bilirubin,Total 2.4 MG/DL (0.2-1.0); Calcium 8.1 MG/DL (8.5-10.1); Osmolality,Calculated 272.8 MOS/KG (273-304); Potassium 3.2 MMOL/L (3.5-5.1); Total Protein 5.6 G/DL (6.4-8.3)
[2018-12-09] MEDS: LEVALBUTEROL 1.25 MG/3 ML NEB RESP TX SCH ×2 (08:21→14:39)
[2018-12-09] MEDS: ALPRAZolam 0.25 MG TABLET PO PRN (10:20)
[2018-12-09] MEDS: fentaNYL 25 MCG/HR PATCH TRANSDERM SCH (10:46)
[2018-12-09] MEDS: ENOXAPARIN 40 MG/0.4 ML SYRINGE SUBCUT SCH (10:47)
[2018-12-09] MEDS: DOCUSATE SODIUM 100 MG CAPSULE PO SCH (10:49)
[2018-12-09] MEDS: POTASSIUM CHLORIDE 8 MEQ CAPSULE PO SCH (10:49)
[2018-12-09] MEDS: FLUCONAZOLE 200 MG TABLET PO SCH (10:49)
[2018-12-09] MEDS: POLYETHYLENE GLYCOL POWDER 17 GM PACK PO SCH ×2 (10:50→21:49)
[2018-12-09] MEDS: LIDOCAINE 5% PATCH TRANSDERM SCH (11:38)
[2018-12-09] MEDS: DEXTROSE 5% NACL 0.22% 1,000 ML IV SCH (16:24)
[2018-12-09] MEDS: MIRTAZAPINE 15 MG TABLET PO SCH (21:46)
[2018-12-10] MEDS: METOPROLOL TARTRATE 5 MG/5 ML VIAL IV SCH ×5 (00:01→23:38)
[2018-12-10] MEDS: LEVALBUTEROL 1.25 MG/3 ML NEB RESP TX SCH ×4 (00:17→22:43)
[2018-12-10] MEDS: DEXTROSE 5% NACL 0.22% 1,000 ML IV SCH (04:29)
[2018-12-10] MEDS: METHOCARBAMOL INJ 1,000 MG in SODIUM CHLORIDE 0.9% 100 ML IV SCH ×3 (05:28→21:13)
[2018-12-10] MEDS: PIPERACILLIN/TAZOBACTAM 3,375 MG in SODIUM CHLORIDE 0.9% 100 ML IV SCH ×3 (06:36→23:34)
[2018-12-10] MEDS: POTASSIUM CHLORIDE 8 MEQ CAPSULE PO SCH (11:53)
[2018-12-10] MEDS: DOCUSATE SODIUM 100 MG CAPSULE PO SCH (11:54)
[2018-12-10] MEDS: ENOXAPARIN 40 MG/0.4 ML SYRINGE SUBCUT SCH (11:54)
[2018-12-10] MEDS: FLUCONAZOLE 200 MG TABLET PO SCH (11:54)
[2018-12-10] MEDS: LIDOCAINE 5% PATCH TRANSDERM SCH (11:55)
[2018-12-10] MEDS: POLYETHYLENE GLYCOL POWDER 17 GM PACK PO SCH ×2 (11:57→21:09)
[2018-12-10] MEDS: MIRTAZAPINE 15 MG TABLET PO SCH (21:13)
[2018-12-11] MEDS: METHOCARBAMOL INJ 1,000 MG in SODIUM CHLORIDE 0.9% 100 ML IV SCH ×3 (05:21→21:56)
[2018-12-11] MEDS: METOPROLOL TARTRATE 5 MG/5 ML VIAL IV SCH ×3 (05:53→18:20)
[2018-12-11] MEDS: PIPERACILLIN/TAZOBACTAM 3,375 MG in SODIUM CHLORIDE 0.9% 100 ML IV SCH (06:05)
[2018-12-11] MEDS: LEVALBUTEROL 1.25 MG/3 ML NEB RESP TX SCH ×3 (07:36→22:40)
[2018-12-11] MEDS: FLUCONAZOLE 200 MG TABLET PO SCH (09:03)
[2018-12-11] MEDS: POTASSIUM CHLORIDE 8 MEQ CAPSULE PO SCH (09:04)
[2018-12-11] MEDS: LIDOCAINE 5% PATCH TRANSDERM SCH (09:04)
[2018-12-11] MEDS: ENOXAPARIN 40 MG/0.4 ML SYRINGE SUBCUT SCH (09:04)
[2018-12-11] MEDS: DOCUSATE SODIUM 100 MG CAPSULE PO SCH (09:04)
[2018-12-11] MEDS: POLYETHYLENE GLYCOL POWDER 17 GM PACK PO SCH ×2 (09:29→21:57)
[2018-12-11] MEDS: MIRTAZAPINE 15 MG TABLET PO SCH (21:50)
[2018-12-11] MEDS: DEXTROSE 5% NACL 0.22% 1,000 ML IV SCH (21:53)
[2018-12-12] MEDS: METOPROLOL TARTRATE 5 MG/5 ML VIAL IV SCH ×3 (01:12→21:11)
[2018-12-12 05:52] LABS: Basophils # 0.1 10*3/uL (0.0-0.2); Basophils % 0.4 % (0.0-0.8); Eosinophils % 0.4 % (0.00-10.9); Hematocrit 32.1 VOL% (35.7-47.0); Immature Granulocytes Absolute 0.34 #; Lymphocytes # 1.5 10*3/uL (1.4-4.0); Lymphocytes % 13.8 % (21.3-54.2); Mean Corpuscular HGB Conc 31.2 GM/DL (32-36); Mean Corpuscular Hemoglobin 24 PG (27-34); Mean Corpuscular Volume 78.3 FL (87-102); Monocytes # 1.4 10*3/uL (0.11-0.8); Monocytes % 12.1 % (1.7-12.7); NRBC # 0.09 10*3/uL; Neutrophils # 7.9 10*3/uL (1.4-7.4); Neutrophils % 70.3 % (38.7-73.9); White Blood Count 11.2 T/CUMM (4-12)
[2018-12-12 05:53] LABS: Platelet Count 71 T/CUMM (130-400)
[2018-12-12 06:06] LABS: Hypochromasia 2+
[2018-12-12] MEDS: METHOCARBAMOL INJ 1,000 MG in SODIUM CHLORIDE 0.9% 100 ML IV SCH (06:06)
[2018-12-12 06:07] LABS: Macrocytosis Slight; Platelet Estimate Decreased; Target Cells Few
[2018-12-12 06:11] LABS: Albumin 1.1 G/DL (3.4-5.0); Bilirubin,Total 2.8 MG/DL (0.2-1.0); Calcium 8.6 MG/DL (8.5-10.1); Osmolality,Calculated 271.8 MOS/KG (273-304); Potassium 3.6 MMOL/L (3.5-5.1); Total Protein 5.9 G/DL (6.4-8.3)
[2018-12-12] MEDS: LEVALBUTEROL 1.25 MG/3 ML NEB RESP TX SCH ×2 (07:15→19:41)
[2018-12-12] MEDS: POTASSIUM CHLORIDE 8 MEQ CAPSULE PO SCH (08:26)
[2018-12-12] MEDS: MAGNESIUM OXIDE 400 MG TABLET PO PRN (08:26)
[2018-12-12] MEDS: FLUCONAZOLE 200 MG TABLET PO SCH ×3 (08:27→10:45)
[2018-12-12] MEDS: fentaNYL 25 MCG/HR PATCH TRANSDERM SCH (08:27)
[2018-12-12] MEDS: DOCUSATE SODIUM 100 MG CAPSULE PO SCH ×3 (08:27→10:45)
[2018-12-12] MEDS: LIDOCAINE 5% PATCH TRANSDERM SCH (08:28)
[2018-12-12] MEDS ORDERED: METHOCARBAMOL INJ 1,000 MG in SODIUM CHLORIDE 0.9% 100 ML IV PRN (08:28)
[2018-12-12] MEDS: ENOXAPARIN 40 MG/0.4 ML SYRINGE SUBCUT SCH (08:29)
[2018-12-12] MEDS: POLYETHYLENE GLYCOL POWDER 17 GM PACK PO SCH ×2 (08:44→21:09)
[2018-12-12] MEDS ORDERED: MAGNESIUM SULF RIDER 2 GM in PREMIX 1 EACH IV ONE (08:45)
[2018-12-12] MEDS ORDERED: MORPHINE 4 MG/1 ML VIAL IV PRN (21:04)
[2018-12-12] MEDS: MIRTAZAPINE 15 MG TABLET PO SCH (21:09)
[2018-12-12] MEDS: HYDROmorphone 2 MG/1 ML VIAL IV PRN (21:15)
[2018-12-12] MEDS: DEXTROSE 5% NACL 0.22% 1,000 ML IV SCH (21:16)
[2018-12-13] MEDS: LEVALBUTEROL 1.25 MG/3 ML NEB RESP TX SCH ×2 (07:51→20:06)
[2018-12-13] MEDS ORDERED: FUROSEMIDE 20 MG/2 ML VIAL IV ONE (08:34)
[2018-12-13] MEDS: MAGNESIUM SULF RIDER 2 GM in PREMIX 1 EACH IV PRN (10:12)
[2018-12-13] MEDS: HYDROmorphone 2 MG/1 ML VIAL IV PRN ×2 (10:14→19:12)
[2018-12-13] MEDS: POLYETHYLENE GLYCOL POWDER 17 GM PACK PO SCH ×2 (10:18→20:54)
[2018-12-13] MEDS: METOPROLOL TARTRATE 5 MG/5 ML VIAL IV SCH ×2 (10:19→20:53)
[2018-12-13] MEDS: LIDOCAINE 5% PATCH TRANSDERM SCH (10:31)
[2018-12-13] MEDS: DOCUSATE SODIUM 100 MG CAPSULE PO SCH (19:02)
[2018-12-13] MEDS: ENOXAPARIN 40 MG/0.4 ML SYRINGE SUBCUT SCH (19:03)
[2018-12-13] MEDS: FLUCONAZOLE 200 MG TABLET PO SCH (19:03)
[2018-12-13] MEDS: POTASSIUM CHLORIDE 8 MEQ CAPSULE PO SCH (19:03)
[2018-12-13] MEDS: ONDANSETRON 4 MG/2 ML VIAL IV PRN (19:10)
[2018-12-13] MEDS: MIRTAZAPINE 15 MG TABLET PO SCH (20:54)
[2018-12-14] MEDS: LEVALBUTEROL 1.25 MG/3 ML NEB RESP TX SCH ×2 (07:20→19:58)
[2018-12-14] MEDS ORDERED: DEXTROSE 50% 25 GM/50 ML SYRINGE IV ONE (08:20)
[2018-12-14] MEDS: DEXTROSE 50% 25 GM/50 ML SYRINGE IV PRN ×2 (08:22→22:52)
[2018-12-14] MEDS ORDERED: HYDROmorphone 2 MG/1 ML VIAL IV PRN (08:44)
[2018-12-14] MEDS: POTASSIUM CHLORIDE 8 MEQ CAPSULE PO SCH (10:58)
[2018-12-14] MEDS: DOCUSATE SODIUM 100 MG CAPSULE PO SCH (10:58)
[2018-12-14] MEDS: LIDOCAINE 5% PATCH TRANSDERM SCH (10:59)
[2018-12-14] MEDS: METOPROLOL TARTRATE 5 MG/5 ML VIAL IV SCH (10:59)
[2018-12-14] MEDS: ENOXAPARIN 40 MG/0.4 ML SYRINGE SUBCUT SCH (11:01)
[2018-12-14] MEDS: POLYETHYLENE GLYCOL POWDER 17 GM PACK PO SCH (11:01)
[2018-12-14] MEDS: ONDANSETRON 4 MG/2 ML VIAL IV PRN (17:08)
[2018-12-14] MEDS: ALUMINUM/MAGNES/SIMETH MAX STR 30 ML UDCUP PO PRN ×2 (17:10→20:50)
[2018-12-15] MEDS: METOPROLOL TARTRATE 5 MG/5 ML VIAL IV SCH ×3 (00:03→20:02)
[2018-12-15] MEDS: MIRTAZAPINE 15 MG TABLET PO SCH ×2 (00:04→20:02)
[2018-12-15] MEDS: POLYETHYLENE GLYCOL POWDER 17 GM PACK PO SCH ×3 (00:04→20:01)
[2018-12-15 05:54] LABS: Basophils % 0.4 % (0.0-0.8); Eosinophils % 0.2 % (0.00-10.9); Hematocrit 32.1 VOL% (35.7-47.0); Hemoglobin 9.8 GM/DL (12.0-16.0); Immature Granulocytes % 2.2 %; Immature Granulocytes Absolute 0.25 #; Lymphocytes # 1.7 10*3/uL (1.4-4.0); Lymphocytes % 14.7 % (21.3-54.2); Mean Corpuscular HGB Conc 30.5 GM/DL (32-36); Mean Corpuscular Hemoglobin 24 PG (27-34); Mean Corpuscular Volume 77.5 FL (87-102); Monocytes # 1.2 10*3/uL (0.11-0.8); NRBC # 0.11 10*3/uL; Neutrophils # 8.1 10*3/uL (1.4-7.4); Neutrophils % 71.5 % (38.7-73.9); Platelet Count 55 T/CUMM (130-400); Red Blood Count 4.14 MC/CUMM (3.8-5.5); Red Cell Distribution Width 23.1 % (9.3-17.3); White Blood Count 11.3 T/CUMM (4-12)
[2018-12-15 06:13] LABS: Hypochromasia 1+; Platelet Estimate Decreased; Target Cells Few
[2018-12-15 06:14] LABS: Macrocytosis Slight; Polychromasia Slight
[2018-12-15 06:53] LABS: Bilirubin,Total 3.5 MG/DL (0.2-1.0); Calcium 8.5 MG/DL (8.5-10.1); Osmolality,Calculated 277.8 MOS/KG (273-304); Potassium 4.3 MMOL/L (3.5-5.1); Total Protein 5.6 G/DL (6.4-8.3)
[2018-12-15] MEDS: LEVALBUTEROL 1.25 MG/3 ML NEB RESP TX SCH ×2 (07:30→19:55)
[2018-12-15] MEDS: fentaNYL 25 MCG/HR PATCH TRANSDERM SCH (12:03)
[2018-12-15] MEDS: LIDOCAINE 5% PATCH TRANSDERM SCH (12:05)
[2018-12-15] MEDS: ENOXAPARIN 40 MG/0.4 ML SYRINGE SUBCUT SCH (12:09)
[2018-12-15] MEDS: DOCUSATE SODIUM 100 MG CAPSULE PO SCH (12:19)
[2018-12-15] MEDS: POTASSIUM CHLORIDE 8 MEQ CAPSULE PO SCH (12:19)
[2018-12-15] MEDS: ALPRAZolam 0.25 MG TABLET PO PRN (16:48)
[2018-12-15] MEDS: DEXTROSE 5% NACL 0.22% 1,000 ML IV SCH (17:34)
[2018-12-15] MEDS: DEXTROSE 50% 25 GM/50 ML SYRINGE IV PRN (18:08)
[2018-12-15] MEDS: ONDANSETRON 4 MG/2 ML VIAL IV PRN (18:56)
[2018-12-15] MEDS: SODIUM CHLORIDE IV SCH (18:56)
[2018-12-15] MEDS: DEXTROSE 10% IV SCH (18:56)
[2018-12-16] MEDS: LEVALBUTEROL 1.25 MG/3 ML NEB RESP TX SCH ×2 (07:24→19:33)
[2018-12-16] MEDS: ENOXAPARIN 40 MG/0.4 ML SYRINGE SUBCUT SCH (09:31)
[2018-12-16] MEDS: LIDOCAINE 5% PATCH TRANSDERM SCH (10:41)
[2018-12-16] MEDS: DOCUSATE SODIUM 100 MG CAPSULE PO SCH (10:53)
[2018-12-16] MEDS: POTASSIUM CHLORIDE 8 MEQ CAPSULE PO SCH (10:54)
[2018-12-16] MEDS: METOPROLOL TARTRATE 5 MG/5 ML VIAL IV SCH ×2 (10:54→20:44)
[2018-12-16] MEDS: POLYETHYLENE GLYCOL POWDER 17 GM PACK PO SCH ×2 (10:54→20:45)
[2018-12-16] MEDS: SODIUM CHLORIDE IV SCH (14:53)
[2018-12-16] MEDS: DEXTROSE 10% IV SCH (14:53)
[2018-12-16] MEDS: MIRTAZAPINE 15 MG TABLET PO SCH (20:45)
[2018-12-17] MEDS: LEVALBUTEROL 1.25 MG/3 ML NEB RESP TX SCH ×2 (07:37→19:08)
[2018-12-17] MEDS: LIDOCAINE 5% PATCH TRANSDERM SCH (10:13)
[2018-12-17] MEDS: POTASSIUM CHLORIDE 8 MEQ CAPSULE PO SCH (10:22)
[2018-12-17] MEDS: METOPROLOL TARTRATE 5 MG/5 ML VIAL IV SCH ×2 (10:22→20:41)
[2018-12-17] MEDS: DOCUSATE SODIUM 100 MG CAPSULE PO SCH (10:22)
[2018-12-17] MEDS: POLYETHYLENE GLYCOL POWDER 17 GM PACK PO SCH ×2 (10:22→20:41)
[2018-12-17] MEDS: DEXTROSE 10% IV SCH (10:40)
[2018-12-17] MEDS: SODIUM CHLORIDE IV SCH (10:40)
[2018-12-17] MEDS ORDERED: ACETAMINOPHEN 325 MG TABLET ONE (17:35)
[2018-12-17] MEDS ORDERED: ACETAMINOPHEN 325 MG TABLET PO PRN (17:47)
[2018-12-17] MEDS: MIRTAZAPINE 15 MG TABLET PO SCH (20:41)
[2018-12-18] MEDS: ALPRAZolam 0.25 MG TABLET PO PRN ×2 (04:00→20:36)
[2018-12-18] MEDS: SODIUM CHLORIDE IV SCH (06:42)
[2018-12-18] MEDS: DEXTROSE 10% IV SCH (06:42)
[2018-12-18] MEDS: LEVALBUTEROL 1.25 MG/3 ML NEB RESP TX SCH ×2 (07:18→19:51)
[2018-12-18 08:33] LABS: Bilirubin,Total 6.4 MG/DL (0.2-1.0); Calcium 8.2 MG/DL (8.5-10.1); Osmolality,Calculated 274.2 MOS/KG (273-304); Potassium 4.7 MMOL/L (3.5-5.1); Total Protein 5.8 G/DL (6.4-8.3)
[2018-12-18 09:10] LABS: Basophils # 0.1 10*3/uL (0.0-0.2); Basophils % 0.5 % (0.0-0.8); Eosinophils % 0.2 % (0.00-10.9); Hematocrit 35.3 VOL% (35.7-47.0); Hemoglobin 10.7 GM/DL (12.0-16.0); Immature Granulocytes % 3.1 %; Immature Granulocytes Absolute 0.39 #; Lymphocytes # 2.1 10*3/uL (1.4-4.0); Lymphocytes % 17.1 % (21.3-54.2); Mean Corpuscular HGB Conc 30.3 GM/DL (32-36); Mean Corpuscular Hemoglobin 24 PG (27-34); Mean Corpuscular Volume 78.6 FL (87-102); Monocytes # 1.5 10*3/uL (0.11-0.8); Monocytes % 12.1 % (1.7-12.7); Neutrophils # 8.4 10*3/uL (1.4-7.4); Red Blood Count 4.49 MC/CUMM (3.8-5.5); Red Cell Distribution Width 23.1 % (9.3-17.3); White Blood Count 12.5 T/CUMM (4-12)
[2018-12-18 09:13] LABS: Platelet Count 34 T/CUMM (130-400)
[2018-12-18] MEDS: fentaNYL 25 MCG/HR PATCH TRANSDERM SCH (09:16)
[2018-12-18] MEDS: METOPROLOL TARTRATE 5 MG/5 ML VIAL IV SCH ×2 (09:40→22:42)
[2018-12-18] MEDS: DOCUSATE SODIUM 100 MG CAPSULE PO SCH (09:40)
[2018-12-18 09:41] LABS: Platelet Estimate Decreased
[2018-12-18 09:42] LABS: Anisocytosis 2+; Polychromasia Slight; Target Cells Few
[2018-12-18] MEDS: MIRTAZAPINE 15 MG TABLET PO SCH (22:42)
[2018-12-19] MEDS: DEXTROSE 50% 25 GM/50 ML SYRINGE IV PRN (00:16)
[2018-12-19] MEDS: LORazepam 2 MG/1 ML VIAL IV PRN ×2 (00:38→19:55)
[2018-12-19] MEDS: MORPHINE 4 MG/1 ML VIAL IV PRN ×4 (00:58→18:40)
[2018-12-19] MEDS: LEVALBUTEROL 1.25 MG/3 ML NEB RESP TX SCH ×2 (07:45→19:10)
[2018-12-19 07:54] VITALS: BP 68/48
[2018-12-19] MEDS: LIDOCAINE 5% PATCH TRANSDERM SCH ×2 (08:30→11:17)
[2018-12-19] MEDS: METOPROLOL TARTRATE 5 MG/5 ML VIAL IV SCH ×2 (09:03→20:03)
[2018-12-19] MEDS: DOCUSATE SODIUM 100 MG CAPSULE PO SCH (09:03)
[2018-12-19] MEDS: DEXTROSE 10% IV SCH (18:46)
[2018-12-19] MEDS: SODIUM CHLORIDE IV SCH (18:46)
[2018-12-20] MEDS: LORazepam 2 MG/1 ML VIAL IV PRN ×2 (00:18→05:29)
[2018-12-20] MEDS: MORPHINE 4 MG/1 ML VIAL IV PRN ×3 (02:55→10:16)
[2018-12-20] MEDS: DEXTROSE 10% IV SCH (04:10)
[2018-12-20] MEDS: SODIUM CHLORIDE IV SCH (04:10)
[2018-12-20] MEDS: LEVALBUTEROL 1.25 MG/3 ML NEB RESP TX SCH (07:26)
[2018-12-20] MEDS ORDERED: LORazepam 2 MG/1 ML VIAL IV PRN ×2 (08:38→08:44)
[2018-12-20] MEDS: LIDOCAINE 5% PATCH TRANSDERM SCH (10:31)
[2018-12-20] MEDS: DOCUSATE SODIUM 100 MG CAPSULE PO SCH (10:31)
[2018-12-20] MEDS: METOPROLOL TARTRATE 5 MG/5 ML VIAL IV SCH (10:31)
[2018-12-20] MEDS ORDERED: MORPHINE 10 MG/1 ML VIAL IV PRN (11:06)
== END 2018-12-20 11:24 | disposition expired | DRG 597 ==
LOC: EDUNIT# → N.EDINP 12:29 → N.ED 12:29 → N.EDINP 15:38 → N.4E 16:15 → N.ICU 11-12 17:22 → N.TELES 11-15 16:40 → N.4E 11-29 15:27
PROVIDERS: ADMIT Specialist; ATTEND Specialist